=== PATIENT | female | born 1985 | race African-American/Black ===

== ENCOUNTER 2017-09-15 15:06 | Emergency (ER) | payer MEDICAID ==
[2017-09-15 16:31] VITALS: BP 106/73
[2017-09-15 16:43] LABS: ABS Basophils 0 10^3/ul (0-0.2); ABS Eosinophils 0.2 10^3/ul (0-0.6); ABS Lymphocytes 1.6 10^3/ul (1.0-4.8); ABS Monocytes 0.5 10^3/ul (0-0.8); ABS Neutrophils 5.1 10^3/ul (1.5-7.7); ABS Nucleated RBC 0 10^3/ul; Eosinophil % 2.1 % (0-6); Hematocrit 38 % (35-47); Hemoglobin 12.6 g/dl (12.0-16.0); Lymphocyte % 21.1 % (25-47); Mean Corpuscular HGB Conc 33 g/dl (31-36); Mean Corpuscular Hemoglobin 29 pg (27-31); Mean Corpuscular Volume 86 fL (80-97); Mean Platelet Volume 8.7 um3 (7.4-10.4); Nucleated Red Blood Cells % 0.2; Platelet Count 285 10^3/ul (150-450); Red Cell Distribution Width 14 % (10.5-15); White Blood Count 7.4 10^3/ul (3.5-10.8)
[2017-09-15] MEDS ORDERED: PROCHLORPERAZINE INJ 5 MG/ML 2 ML VIAL IV PRN (16:52)
[2017-09-15] MEDS ORDERED: Morphine VIAL* 4 MG/ML VIAL (1 ml vial) IV ONE (16:52)
[2017-09-15 16:54] LABS: EGFR Non-African American 77.5 (>60)
--- NOTE | 2017-09-15 17:01 | ED ---
Abdominal Pain/Female - HPI Summary HPI Summary: Patient here with abdominal pain since hysterectomy in February 2017. She reports this got worse yesterday in her right lower quadrant and describes it as a burning pain. She had a hysterectomy in 2017 for her fibroids that she reports rib "the size of footballs". The pain she's had since the surgery has been followed by her care providers who per patient did not feel there is anything significant causing this. She reports she is able to urinate without difficulty and denies frequency, hematuria, urgency, hesitation. Furthermore she denies any vaginal irritation or discharge. She does admit that the pain in her right lower quadrant is worse when she tries to bear down to move her bowels and is better when she allows her stool to pass naturally without straining. She denies melena and hematochezia. In fact she reports her stool is more of a light brown color, even orange at times. She is not sure if she still has her appendix, gallbladder, ovaries, etc. Denies history of gastrointestinal issues otherwise such as Crohn's or colitis. - History of Current Complaint Chief Complaint: Garry Stated Complaint: ABD PAIN Time Seen by Provider: 09/15/17 15:21 Hx Obtained From: Patient Pain Intensity: 10 Allergies/Adverse Reactions: Allergies Allergy/AdvReac Type Severity Reaction Status Date / Time NSAIDS (Non-Steroidal Allergy GI Upset Verified 09/15/17 15:30 Anti-Inflamma Home Medications: Home Medications Gabapentin CAP(*) [Neurontin 300 CAP(*)] 300 mg PO TID 09/15/17 [History Confirmed 09/15/17] LevoCETirizine TAB (NF) [Xyzal TAB (NF)] 5 mg PO DAILY 09/15/17 [History Confirmed 09/15/17] Omeprazole CAP* [Prilosec CAP* 20 MG] 20 mg PO DAILY 09/15/17 [History Confirmed 09/15/17] PMH/Surg Hx/FS Hx/Imm Hx Previously Healthy: Yes Endocrine/Hematology History: Reports: Hx Thyroid Disease - Hyperthyroid Denies: Hx Diabetes Cardiovascular History: Denies: Hx Hypertension, Hx Pacemaker/ICD GI History: Reports: Other GI Disorders - GASTRIC ULCER History: Denies: Hx Dialysis, Hx Renal Disease Sensory History: Denies: Hx Hearing Aid Psychiatric History: Reports: Hx of Violent Episodes Against Others, Hx Substance Abuse - ETOH abuse Denies: Hx Eating Disorder, Hx Panic Disorder - Surgical History Surgery Procedure, Year, and Place: SURGERY FOR FIBROIDS - Immunization History Date of Tetanus Vaccine: 2010 Date of Influenza Vaccine: None Infectious Disease History: No Infectious Disease History: Denies: Traveled Outside the [place] in Last 30 Days - Family History Known Family History: Positive: Diabetes, Other - neg blood clots - Social History Alcohol Use: Weekly Alcohol Amount: approx 2 beers when she can get it Hx Substance Use: Yes Substance Use Type: Reports: Marijuana Substance Use Comment - Amount & Last Used: occasionally Hx Tobacco Use: Yes Smoking Status (MU): Light Every Day Tobacco Smoker Review of Systems Constitutional: Negative Negative: Fever, Chills, Fatigue Negative: Chest Pain Negative: Shortness Of Breath Positive: Abdominal Pain. Negative: Vomiting, Diarrhea, Nausea Positive: see HPI Musculoskeletal: Negative Skin: Negative Neurological: Negative Positive: Anxious All Other Systems Reviewed And Are Negative: Yes Physical Exam Triage Information Reviewed: Yes Vital Signs On Initial Exam: Initial Vitals Temp Pulse Resp BP Pulse Ox 98.1 F 73 18 155/74 97 09/15/17 15:15 09/15/17 15:15 09/15/17 15:15 09/15/17 15:15 09/15/17 15:15 Vital Signs Reviewed: Yes Appearance: Positive: Well-Appearing, Pain Distress - plus anxiety, Obese Skin: Positive: Warm, Skin Color Reflects Adequate Perfusion, Dry Head/Face: Positive: Normal Head/Face Inspection Eyes: Positive: Normal, EOMI, Conjunctiva Clear - anicteric sclera ENT: Positive: Normal ENT inspection, Hearing grossly normal, Pharynx normal - mucosa moist Respiratory/Lung Sounds: Positive: Breath Sounds Present Cardiovascular: Positive: Normal, RRR Abdomen Description: Positive: Soft, McBurney's Point Tenderness - no rebounding ; possible Rovsing Pelvic Exam: Positive: External Exam Normal, Other - internal difficult 2ndry to body habitus - attempted speculum and bimanual w/o success - swabs collected. Negative: Active Bleeding Musculoskeletal: Positive: Normal, Strength/ROM Intact Neurological: Positive: Normal, Sensory/Motor Intact, Alert, Oriented to Person Place, Time, CN Intact II-III Psychiatric: Positive: Anxious Diagnostics - Vital Signs Vital Signs Temp Pulse Resp BP Pulse Ox 09/15/17 16:28 78 106/73 100 09/15/17 16:10 83 125/104 97 09/15/17 16:00 82 100 09/15/17 15:21 75 155/74 99 09/15/17 15:15 98.1 F 73 18 155/74 97 - Laboratory Lab Results: Lab Results 09/15/17 09/15/17 09/15/17 Range/Units 16:25 16:25 16:25 WBC 7.4 (3.5-10.8) 10^3/ul RBC 4.40 (4.0-5.4) 10^6/ul Hgb 12.6 (12.0-16.0) g/dl Hct 38 (35-47) % MCV 86 (80-97) fL MCH 29 (27-31) pg MCHC 33 (31-36) g/dl RDW 14 (10.5-15) % Plt Count 285 (150-450) 10^3/ul MPV 8.7 (7.4-10.4) um3 Neut % (Auto) 68.7 (38-83) % Lymph % (Auto) 21.1 L (25-47) % [place] % (Auto) 7.4 H (0-7) % Eos % (Auto) 2.1 (0-6) % Baso % (Auto) 0.7 (0-2) % Absolute Neuts (auto) 5.1 (1.5-7.7) 10^3/ul Absolute Lymphs (auto) 1.6 (1.0-4.8) 10^3/ul Absolute Monos (auto) 0.5 (0-0.8) 10^3/ul Absolute Eos (auto) 0.2 (0-0.6) 10^3/ul Absolute Basos (auto) 0 (0-0.2) 10^3/ul Absolute Nucleated RBC 0 10^3/ul Nucleated RBC % 0.2 Sodium 136 L (139-145) mmol/L Potassium 3.8 (3.5-5.0) mmol/L Chloride 103 (101-111) mmol/L Carbon Dioxide 25 (22-32) mmol/L Anion Gap 8 (2-11) mmol/L BUN 13 (6-24) mg/dL Creatinine 0.86 (0.51-0.95) mg/dL Est GFR ( Amer) 99.6 (>60) Est GFR (Non-Af Amer) 77.5 (>60) BUN/Creatinine Ratio 15.1 (8-20) Glucose 110 H (70-100) mg/dL Lactic Acid 1.0 (0.5-2.0) mmol/L Calcium 9.4 (8.6-10.3) mg/dL Magnesium 2.0 (1.9-2.7) mg/dL Total Bilirubin 0.20 (0.2-1.0) mg/dL AST 25 (13-39) U/L ALT 31 (7-52) U/L Alkaline Phosphatase 68 (34-104) U/L C-Reactive Protein 16.23 H (< 5.00) mg/L Total Protein 7.7 (6.4-8.9) g/dL Albumin 3.7 (3.2-5.2) g/dL Globulin 4.0 (2-4) g/dL Albumin/Globulin Ratio 0.9 L (1-3) Lipase 30 (11.0-82.0) U/L Result Diagrams: 09/15/17 16:25 09/15/17 16:25 Lab Statement: Any lab studies that have been ordered have been reviewed, and results considered in the medical decision making process. Abdominal Pain Fem Course/Dx - Course Course Of Treatment: Appendicitis vs. ovarian cyst vs ovarian torsion vs hernia vs complication of hysterectomy (surgical injury, adhesion, etc). Signed out to Veronica ZHANG pending CT and U/S. Labs and vitals are uremarkable for acute infection. - Diagnoses Provider Diagnoses: RLQ abdominal pain Discharge - Sign-Out/Discharge Documenting (check all that apply): Sign-Out Patient Signing out patient TO: Marva Castrejon - Discharge Plan Condition: Stable - Billing Disposition and Condition Condition: STABLE
[2017-09-15] MEDS ORDERED: Iohexol 300* (CONTRAST) 10 ML SDV IV ONE (17:02)
[2017-09-15] MEDS ORDERED: Diazepam SYRINGE* 5 MG/ML 2 ML SYRINGE (10 MG total) IV ONE (17:21)
[2017-09-15] MEDS ORDERED: LORazepam INJ* 2 MG/ML 1 ML VIAL IV PUSH ONE (17:45)
--- NOTE | 2017-09-15 19:31 | RAD ---
Indication: Right lower quadrant pain. Contrast: 150 mL of Omnipaque 300. CT of the abdomen and pelvis was performed after IV contrast administration. No oral contrast was administered. Comparison is made with previous exam dated February 23, 2015. Lung bases demonstrate no pleural fluid nodules or masses. Heart is of normal size without evidence of pericardial effusion. The liver is normal in size. No focal lesions or intrahepatic ductal dilatation is noted. The spleen is normal in size. The gallbladder demonstrates no calcified gallstones. No adrenal masses are noted. The kidneys demonstrate no hydronephrosis. Demonstrate symmetric nephrograms. Aorta and inferior vena cava are unremarkable. Dilated loops of bowel are noted. The colon is filled with stool. The appendix is visualized and appears normal. Evaluation of the pelvis demonstrates no retroperitoneal or pelvic lymphadenopathy. The colon is filled with stool. Urinary bladder is unremarkable. There is no dilated loops of bowel noted. Patient is status post hysterectomy. No free fluid is identified. IMPRESSION: Patient is status post hysterectomy. No adnexal masses are noted. The appendix appears normal.
--- NOTE | 2017-09-15 20:24 | RAD ---
Indication: Right lower quadrant pain. Real-time sonography of the pelvis was performed. The patient is status post hysterectomy. The right ovary measures 4.3 x 3.1 x 2.1 cm. Left ovary measures 2.4 x 4.3 x 3.6 cm. Doppler interrogation demonstrates flow in both ovaries. IMPRESSION: No evidence of torsion. Patient status post hysterectomy.
--- NOTE | 2017-09-15 20:38 | ED ---
Progress - Progress Note Progress Note: Patient signed out by Parisa pending ultrasound and CT. CT normal. Ultrasound normal. Discussed that did not have a reason for her pain. Does not appear to have any infection. Told to follow carpenter assembler. Tylenol for pain. Patient is requesting Colace for constipation. Patient understands and agrees with plan. - EKG/XRAY/CT CT: IMPRESSION: Patient is status post hysterectomy. No adnexal masses are note Course/Dx - Course Course Of Treatment: Appendicitis vs. ovarian cyst vs ovarian torsion vs hernia vs complication of hysterectomy (surgical injury, adhesion, etc). Signed out to Veronica ZHANG pending CT and U/S. Labs and vitals are uremarkable for acute infection. u/s normal flow ovaries - Diagnoses Provider Diagnoses: RLQ abdominal pain Discharge - Sign-Out/Discharge Documenting (check all that apply): Discharge/Admit/Transfer, Receiving Sign-Out Receiving patient FROM: Parisa Peterson - Discharge Plan Condition: Good Disposition: HOME Prescriptions: Docusate CAP* [Colace Cap*] 100 mg PO DAILY #15 cap Patient Education Materials: Abdominal Pain (ED) Referrals: Jo Whitaker MD [Primary Care Provider] - Additional Instructions: Follow up with carpenter assembler Take tyenlol every 6 hours Take colace once a day Return to ED if develop any new or worsening symptoms - Billing Disposition and Condition Condition: GOOD Disposition: HOME
[2017-09-15 21:34] LABS: Urine Appearance Clear; Urine Blood Negative (Negative); Urine Color Yellow; Urine Ketones Negative (Negative); Urine Protein Negative (Negative); Urine Specific Gravity > 1.060 (1.010-1.030); Urine Urobilinogen Negative (Negative)
== END 2017-09-15 21:01 | disposition home or self-care (01) ==
LOC: ED 15:06
DX: R10.31 Right lower quadrant pain (principal); F17.200 Nicotine dependence, unspecified, uncomplicated; Z90.710 Acquired absence of both cervix and uterus; Z88.6 Allergy status to analgesic agent
CPT/HCPCS: 36415; 74177; 76830; 80053; 81003; 83605; 83690; 83735; 85025; 86140; 87480; 87491; 87510; 87591; 87661; 96374; 96375; 99282; J0780; J2060; J2270; Q9967

== ENCOUNTER 2017-11-06 12:42 | Emergency (ER) | payer MEDICAID ==
[2017-11-06] MEDS ORDERED: Acetaminophen TAB* 325 MG PO ONE (12:49)
--- NOTE | 2017-11-06 13:12 | RAD ---
INDICATION: Right ankle injury none COMPARISON: None TECHNIQUE: AP, lateral, and oblique views were obtained. FINDINGS: There is no acute fracture or dislocation. There is mild diffuse soft tissue swelling. IMPRESSION: NO ACUTE FRACTURE
[2017-11-06 13:39] VITALS: BP 139/78
--- NOTE | 2017-11-06 14:13 | ED ---
Lower Extremity - HPI Summary HPI Summary: Patient is a 32-year-old female presenting to the ED 12 hours after she inverted her right ankle. Patient endorses swelling, but denies any ecchymosis or temperature changes. Denies any numbness or tingling. She states she is unable to ambulate on the extremity due to pain. Allergy to NSAIDs. - History of Current Complaint Chief Complaint: EDExtremityLower Stated Complaint: RT ANKLE INJURY Time Seen by Provider: 11/06/17 12:45 Hx Obtained From: Patient Mechanism Of Injury: Twisted Onset of Pain: Hours Onset/Duration: Hours Severity Initially: Moderate Severity Currently: Moderate Pain Intensity: 0 Pain Scale Used: 0-10 Numeric Timing: Constant Location: Is Discrete @ - right ankle pain Character Of Pain: Aching Associated Signs And Symptoms: Positive: Swelling. Negative: Redness, Bruising , Fever, Weakness Aggravating Factor(s): Standing, Ambulation Alleviating Factor(s): Rest Able to Bear Weight: No - Risk Factors Gout Risk Factors: Negative DVT Risk Factors: Negative Septic Arthritis Risk Factor: Negative - Allergies/Home Medications Allergies/Adverse Reactions: Allergies Allergy/AdvReac Type Severity Reaction Status Date / Time NSAIDS (Non-Steroidal Allergy GI Upset Verified 11/06/17 12:52 Anti-Inflamma PMH/Surg Hx/FS Hx/Imm Hx Previously Healthy: Yes Endocrine/Hematology History: Reports: Hx Thyroid Disease - Hyperthyroid Denies: Hx Diabetes Cardiovascular History: Denies: Hx Hypertension, Hx Pacemaker/ICD GI History: Reports: Other GI Disorders - GASTRIC ULCER History: Denies: Hx Dialysis, Hx Renal Disease Sensory History: Denies: Hx Hearing Aid Psychiatric History: Reports: Hx of Violent Episodes Against Others, Hx Substance Abuse - ETOH abuse Denies: Hx Eating Disorder, Hx Panic Disorder - Surgical History Surgery Procedure, Year, and Place: SURGERY FOR FIBROIDS - Immunization History Date of Tetanus Vaccine: 2010 Date of Influenza Vaccine: None Hx Pertussis Vaccination: No Immunizations Up to Date: Unable to Obtain/Confirm Infectious Disease History: No Infectious Disease History: Denies: Traveled Outside the [place] in Last 30 Days - Family History Known Family History: Positive: None, Diabetes, Other - neg blood clots - Social History Occupation: Unemployed Lives: Alone Alcohol Use: Weekly Alcohol Amount: approx 2 beers when she can get it Hx Substance Use: Yes Substance Use Type: Reports: Marijuana Substance Use Comment - Amount & Last Used: occasionally Hx Tobacco Use: Yes Smoking Status (MU): Light Every Day Tobacco Smoker Review of Systems Constitutional: Negative Negative: Fever, Chills, Skin Diaphoresis Negative: Palpitations, Chest Pain Negative: Shortness Of Breath, Cough Genitourinary: Negative Positive: no symptoms reported, see HPI Positive: Arthralgia - right ankle pain Skin: Negative Neurological: Negative All Other Systems Reviewed And Are Negative: Yes Physical Exam Triage Information Reviewed: Yes Vital Signs On Initial Exam: Initial Vitals Temp Pulse Resp BP Pulse Ox 97.8 F 80 16 130/75 99 11/06/17 12:49 11/06/17 12:49 11/06/17 12:49 11/06/17 12:49 11/06/17 12:49 Vital Signs Reviewed: Yes Appearance: Positive: Well-Appearing, Well-Nourished, Obese Skin: Positive: Warm, Skin Color Reflects Adequate Perfusion Head/Face: Positive: Normal Head/Face Inspection Neck: Positive: Supple, No Lymphadenopathy Respiratory/Lung Sounds: Positive: Clear to Auscultation Cardiovascular: Positive: RRR Musculoskeletal: Positive: Pain @ - right ankle pain Neurological: Positive: Speech Normal Psychiatric: Positive: Normal, Affect/Mood Appropriate Diagnostics - Vital Signs Vital Signs Temp Pulse Resp BP Pulse Ox 11/06/17 13:38 98.2 F 83 18 139/78 99 11/06/17 12:49 97.8 F 80 16 130/75 99 - Laboratory Lab Statement: Any lab studies that have been ordered have been reviewed, and results considered in the medical decision making process. Lower Extremity Course/Dx - Course Course Of Treatment: Xray of the R ankle negative for any fracture. Denies numbness or tingling. There is swelling noted to the lateral side. Decreased strength. Gel splint, Hermes wrap and crutches given. - Diagnoses Differential Diagnosis/HQI/PQRI: Positive: Sprain, Strain Provider Diagnoses: Ankle sprain Discharge - Sign-Out/Discharge Documenting (check all that apply): Discharge/Admit/Transfer - Discharge Plan Condition: Stable Disposition: HOME Patient Education Materials: Ankle Sprain (ED) Referrals: Jo Whitaker MD [Primary Care Provider] - Additional Instructions: Keep gel splint applied for comfort Keep hermes wrapped daily until you begin to feel improved Crutches as needed tylenol 650mg three times daily Elevate ice - Billing Disposition and Condition Condition: STABLE Disposition: Home
== END 2017-11-06 13:38 | disposition home or self-care (01) ==
LOC: ED 12:42
DX: S93.401A Sprain of unspecified ligament of right ankle, initial encounter (principal); M25.471 Effusion, right ankle; F17.210 Nicotine dependence, cigarettes, uncomplicated; X50.9XXA Other and unspecified overexertion or strenuous movements or postures, initial encounter; Y92.9 Unspecified place or not applicable; Z88.6 Allergy status to analgesic agent
CPT/HCPCS: 99283; A9270-GY

== ENCOUNTER 2018-06-04 12:15 | Emergency (ER) | payer MEDICARE, MEDICAID ==
--- NOTE | 2018-06-04 12:40 | ED ---
Upper Extremity Pain - HPI Summary HPI Summary: This patient is a 33 year old F presenting to [facility] with a chief complaint of bilateral UE pain and numbness that got worse this morning. She states yesterday she was at work when she began having back pain and numbness, she thought she over did it and went to bed. Then the UE sx began this morning when she woke up. The patient rates the pain 10/10 in severity and describes the sensation as feeling heavy. Patient reports RLE edema that also began this morning. Patient denies cough, NVD, MARQUEZ, blurred vision, ABD pain, CP, SOB, fever , and chills. She has no history of blood clots. She has had a hysterectomy and she is not on any hormones. - History of Current Complaint Chief Complaint: EDExtremityUpper Stated Complaint: NUMBNESS IN HANDS Time Seen by Provider: 06/04/18 12:30 Hx Obtained From: Patient Mechanism Of Injury: Unknown Onset/Duration: Started Hours Ago, Still Present Timing: Constant Severity Initially: Mild Severity Currently: Moderate Pain Location: Arm Associated Signs & Symptoms: Positive: Swelling, Weakness, Numbness/Tingling - Allergies/Home Medications Allergies/Adverse Reactions: Allergies Allergy/AdvReac Type Severity Reaction Status Date / Time NSAIDS (Non-Steroidal Allergy GI Upset Verified 06/04/18 12:19 Anti-Inflamma Home Medications: Home Medications LoraTADine TAB(NF) [Claritin 10 MG TAB(NF)] 10 mg PO DAILY 06/04/18 [History Confirmed 06/04/18] Ranitidine TAB (NF) [Zantac TAB (NF)] 150 mg PO DAILY 06/04/18 [History Confirmed 06/04/18] PMH/Surg Hx/FS Hx/Imm Hx Endocrine/Hematology History: Reports: Hx Thyroid Disease - Hyperthyroid Denies: Hx Diabetes Cardiovascular History: Denies: Hx Angioplasty, Hx Hypertension, Hx Pacemaker/ICD GI History: Reports: Other GI Disorders - GASTRIC ULCER History: Denies: Hx Dialysis, Hx Renal Disease Sensory History: Reports: Hx Contacts or Glasses Opthamlomology History: Reports: Hx Contacts or Glasses Psychiatric History: Reports: Hx of Violent Episodes Against Others, Hx Substance Abuse - ETOH abuse Denies: Hx Eating Disorder, Hx Panic Disorder - Surgical History Surgery Procedure, Year, and Place: SURGERY FOR FIBROIDS - Immunization History Date of Tetanus Vaccine: 2010 Date of Influenza Vaccine: None Infectious Disease History: No Infectious Disease History: Denies: Traveled Outside the [place] in Last 30 Days - Family History Known Family History: Positive: Hypertension, Diabetes, Other - neg blood clots - Social History Alcohol Use: Weekly Alcohol Amount: approx 2 beers when she can get it Hx Substance Use: Yes Substance Use Type: Reports: Marijuana Substance Use Comment - Amount & Last Used: occasionally Hx Tobacco Use: Yes Smoking Status (MU): Light Every Day Tobacco Smoker Review of Systems Negative: Fever, Chills Negative: Blurred Vision Negative: Chest Pain Negative: Shortness Of Breath Negative: Abdominal Pain, Vomiting, Diarrhea, Nausea Musculoskeletal: Other - pain at bilateal UE Positive: Edema, Other - back pain Positive: Numbness. Negative: Headache All Other Systems Reviewed And Are Negative: Yes Physical Exam - Summary Physical Exam Summary: GENERAL: Patient is a well-developed and nourished F who is lying comfortable in the stretcher. Patient is not in any acute respiratory distress. HEAD AND FACE: Normocephalic EYES: PERRLA, EOMI x 2. EARS: Hearing grossly intact. MOUTH: Oropharynx within normal limits. NECK: Supple, trachea is midline, no adenopathy, no JVD, no carotid bruit. CHEST: Symmetric, no tenderness at palpation LUNGS: Clear to auscultation bilaterally. No wheezing or crackles. CVS: Regular rate and rhythm, S1 and S2 present, no murmurs or gallops appreciated. ABDOMEN: Soft, non-tender. Bowel sounds are normal. No abdominal abnormal pulsations. EXTREMITIES: the RLE is swollen without erythema or warmth NEURO: Alert and oriented x 3. No acute neurological deficits. Speech is normal and follows commands. Sensation in bilateral hands intact decrease ROM 2/2 pain , no obvious deformity, swelling SKIN: Dry and warm Triage Information Reviewed: Yes Vital Signs On Initial Exam: Initial Vitals Temp Pulse Resp BP Pulse Ox 97.5 F 68 18 132/92 100 06/04/18 12:19 06/04/18 12:19 06/04/18 12:19 06/04/18 12:19 06/04/18 12:19 Vital Signs Reviewed: Yes Diagnostics - Vital Signs Vital Signs Temp Pulse Resp BP Pulse Ox 06/04/18 12: 97.5 F 68 18 132/92 100 - Laboratory Result Diagrams: 06/04/18 12:54 06/04/18 12:54 Lab Statement: Any lab studies that have been ordered have been reviewed, and results considered in the medical decision making process. - Ultrasound No standard instances Ultrasound Interpretation Completed By: Radiologist Summary of Ultrasound Findings: US RLE reveals, per radiologist, NO RIGHT LOWER EXTREMITY DEEP VEIN THROMBOSIS. ED physician has reviewed this radiology report Re-Evaluation - Re-Evaluation First Eval Re-Evaluation Time: 15:18 Change: Improved Comment: The patient states she is feeling better and is requesting to go home. Course/Dx - Course Assessment/Plan: This patient is a 33 year old F presenting to [facility] with a chief complaint of bilateral UE pain and numbness that got worse this morning. US RLE reveals, per radiologist, NO RIGHT LOWER EXTREMITY DEEP VEIN THROMBOSIS. The patient is requesting to go home. Blood work obtained. In the ED course the patient was given ultram and her pain improved. Patient will be discharged and follow up from PCP. The patient is agreeable with this plan. - Diagnoses Provider Diagnoses: Hand paresthesia Discharge - Sign-Out/Discharge Documenting (check all that apply): Patient Departure Patient Received Moderate/Deep Sedation with Procedure: No - Discharge Plan Condition: Stable Disposition: HOME Patient Education Materials: Paresthesia (ED) Forms: *Work Release Referrals: Jo Whitaker MD [Primary Care Provider] - Additional Instructions: Follow up with your primary care physician in 1-3 days. RETURN TO THE EMERGENCY DEPARTMENT FOR CHANGING OR WORSENING SYMPTOMS. - Billing Disposition and Condition Condition: STABLE Disposition: Home - Attestation Statements Document Initiated by Kerry: Yes Documenting Scribe: Toni Sykes Provider For Whom Kerry is Documenting (Include Credential): Oscar Olmos MD Scribe Attestation: Toni Finney scribed for Oscar Olmos MD on 06/05/18 at 1051. Scribe Documentation Reviewed: Yes Provider Attestation: The documentation as recorded by the Toni alcaraz accurately reflects the service I personally performed and the decisions made by me, Oscar Olmos MD Status of Scribe Document: Viewed
[2018-06-04 13:56] LABS: ABS Basophils 0.1 10^3/ul (0-0.2); ABS Eosinophils 0.2 10^3/ul (0-0.6); ABS Lymphocytes 1.8 10^3/ul (1.0-4.8); ABS Monocytes 0.5 10^3/ul (0-0.8); ABS Neutrophils 4.8 10^3/ul (1.5-7.7); ABS Nucleated RBC 0 10^3/ul; Eosinophil % 2.6 %; Hematocrit 38 % (35-47); Hemoglobin 12.2 g/dl (12.0-16.0); Mean Corpuscular HGB Conc 32 g/dl (31-36); Mean Corpuscular Hemoglobin 28 pg (27-31); Mean Corpuscular Volume 88 fL (80-97); Mean Platelet Volume 8.8 fL (7.4-10.4); Nucleated Red Blood Cells % 0.1; Platelet Count 276 10^3/ul (150-450); Red Blood Count 4.33 10^6/ul (4.00-5.40); Red Cell Distribution Width 14 % (10.5-15); White Blood Count 7.3 10^3/ul (3.5-10.8)
[2018-06-04 14:11] LABS: INR 0.93 (0.77-1.02)
[2018-06-04 14:18] LABS: HCG Pregnancy < 0.60 mIU/mL
[2018-06-04 14:20] LABS: ALT 37 U/L (7-52); AST 28 U/L (13-39); Albumin/Globulin Ratio 1.3 (1-3); Alkaline Phosphatase 67 U/L (34-104); Anion Gap 7 mmol/L (2-11); BUN/Creatinine Ratio 18.1 (8-20); Blood Urea Nitrogen 13 mg/dL (6-24); CO2 Carbon Dioxide 23 mmol/L (22-32); Calcium 9.3 mg/dL (8.6-10.3); Chloride 108 mmol/L (101-111); EGFR African American 114.3 (>60); EGFR Non-African American 94.5 (>60); Globulin 3.2 g/dL (2-4); Glucose 94 mg/dL (70-100); Magnesium 1.9 mg/dL (1.9-2.7); Sodium 138 mmol/L (135-145); Total Protein 7.2 g/dL (6.4-8.9)
[2018-06-04 14:44] LABS: TSH (Thyroid Stimulating Horm) 1.44 mcIU/mL (0.34-5.60)
[2018-06-04] MEDS ORDERED: traMADol TAB* 50 MG PO ONE (14:48)
[2018-06-04 15:27] VITALS: BP 128/82
== END 2018-06-04 15:26 | disposition home or self-care (01) ==
LOC: ED 12:15
DX: R20.2 Paresthesia of skin (principal); M54.9 Dorsalgia, unspecified; R60.9 Edema, unspecified
CPT/HCPCS: 36415; 80053; 83605; 83735; 83880; 84100; 84443; 84702; 85025; 85610; 85730; 99283; A9270-GY

== ENCOUNTER 2018-06-20 12:20 | Emergency (ER) | payer MEDICAID ==
--- NOTE | 2018-06-20 15:02 | ED ---
Upper Extremity Pain - HPI Summary HPI Summary: Pt is a 33 y/o female who presents to the ED c/o RUE pain. She has had numbness , paresthesia, and pain of her RUE for the past 2-3 days. The pain begins in her right elbow and extends up to her entire right hand. Pt rates the pain as a 10/10 in severity, and is worse in the morning and while shes sleeping. Her PCP believes her pain is carpal tunnel so she was given a brace, but the brace makes the pain worse. 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 She also notes that her left toe was numb this morning. Pts mother has carpal tunnel. - History of Current Complaint Chief Complaint: EDExtremityUpper Stated Complaint: ARM INJURY Time Seen by Provider: 06/20/18 14:57 Hx Obtained From: Patient Mechanism Of Injury: Other - No injury Onset/Duration: Started Days Ago - 2-3, Still Present Timing: Constant Severity Currently: Severe - 10/10 Pain Location: Arm - right forearm, Elbow - right, Hand - right Aggravating Factor(s): Other - wearing brace Alleviating Factor(s): Nothing Associated Signs & Symptoms: Positive: Numbness/Tingling Related History: Dominant Hand Right - Allergies/Home Medications Allergies/Adverse Reactions: Allergies Allergy/AdvReac Type Severity Reaction Status Date / Time NSAIDS (Non-Steroidal Allergy GI Upset Verified 06/20/18 12:41 Anti-Inflamma PMH/Surg Hx/FS Hx/Imm Hx Endocrine/Hematology History: Reports: Hx Thyroid Disease - Hyperthyroid Denies: Hx Diabetes Cardiovascular History: Denies: Hx Angioplasty, Hx Hypertension, Hx Pacemaker/ICD GI History: Reports: Other GI Disorders - GASTRIC ULCER History: Denies: Hx Dialysis, Hx Renal Disease Sensory History: Reports: Hx Contacts or Glasses Opthamlomology History: Reports: Hx Contacts or Glasses Psychiatric History: Reports: Hx of Violent Episodes Against Others, Hx Substance Abuse - ETOH abuse Denies: Hx Eating Disorder, Hx Panic Disorder - Surgical History Surgery Procedure, Year, and Place: SURGERY FOR FIBROIDS - Immunization History Date of Tetanus Vaccine: 2010 Date of Influenza Vaccine: None Infectious Disease History: No Infectious Disease History: Denies: Traveled Outside the [place] in Last 30 Days - Family History Known Family History: Positive: Hypertension, Diabetes, Other - carpal tunnel Negative: Blood Disorder - clots - Social History Alcohol Use: Weekly Alcohol Amount: approx 2 beers when she can get it Hx Substance Use: Yes Substance Use Type: Reports: Marijuana Substance Use Comment - Amount & Last Used: occasionally Hx Tobacco Use: Yes Smoking Status (MU): Light Every Day Tobacco Smoker Review of Systems Positive: Myalgia - RUE Positive: Paresthesia - RUE, Numbness - RUE All Other Systems Reviewed And Are Negative: Yes Physical Exam - Summary Physical Exam Summary: Appearance: Well appearing, no pain distress Skin: warm, dry, reflects adequate perfusion Head/face: normal Eyes: EOMI, ARLETTE ENT: mucous membranes moist Neck: supple, non-tender Respiratory: CTA, breath sounds present Cardiovascular: RRR, pulses symmetrical Abdomen: non-tender, soft Bowel Sounds: present Musculoskeletal: normal, strength/ROM intact, motor function of medial, ulnar, and extensor nerves intact Neuro: normal, sensory motor intact, A&Ox3 Triage Information Reviewed: Yes Vital Signs On Initial Exam: Initial Vitals Temp Pulse Resp BP Pulse Ox 97.7 F 80 19 143/64 99 06/20/18 12:37 06/20/18 12:37 06/20/18 12:37 06/20/18 12:37 06/20/18 12:37 Vital Signs Reviewed: Yes Diagnostics - Vital Signs Vital Signs Temp Pulse Resp BP Pulse Ox 06/20/18 12:37 97.7 F 80 19 143/64 99 - Laboratory Lab Statement: Any lab studies that have been ordered have been reviewed, and results considered in the medical decision making process. Course/Dx - Course Course Of Treatment: Nurse's notes reviewed. Patient with a working diagnosis of carpal tunnel syndrome was not wearing her brace presents with pain in all III nerve distributions in her dominant right hand and wrist. She has no thenar wasting. She was treated for discomfort and suggested to get outpatient EMG. She was referred to hand surgery. - Diagnoses Differential Diagnosis/HQI/PQRI: Positive: Other - Radicular pain, carpal tunnel syndrome Provider Diagnoses: Carpal tunnel syndrome, Right hand paresthesia Discharge - Sign-Out/Discharge Documenting (check all that apply): Patient Departure - Discharge Patient Received Moderate/Deep Sedation with Procedure: No - Discharge Plan Condition: Improved Disposition: HOME Prescriptions: Meloxicam [Mobic] 7.5 mg PO DAILY #30 tablet Patient Education Materials: Paresthesia (ED), Carpal Tunnel Surgery (DC) Forms: *Work Release Referrals: Phil Garza MD [Medical Doctor] - Holger Johnson DO [Primary Care Provider] - Additional Instructions: You will need to have an EMG scheduled by your doctor to be done on an outpatient basis. Make sure you wear your splint at night as this will help over the long-term. Ice, Tylenol for breakthrough pain. After the EMG is performed if it is abnormal you can follow-up with the orthopedic hand surgeon Dr. Garza. Return if worse, new symptoms or other concerns. - Billing Disposition and Condition Condition: IMPROVED Disposition: Home - Attestation Statements Document Initiated by Kerry: Yes Documenting Scribe: Leyla Mahajan Provider For Whom Kerry is Documenting (Include Credential): Matthias Almonte MD Scribe Attestation: Leyla Finney, scribed for Matthias Almonte MD on 06/20/18 at 1723. Scribe Documentation Reviewed: Yes Provider Attestation: The documentation as recorded by the Leyla alcaraz accurately reflects the service I personally performed and the decisions made by , Matthias Almonte MD Status of Scribe Document: Viewed
[2018-06-20 15:17] VITALS: BP 139/78
== END 2018-06-20 15:15 | disposition home or self-care (01) ==
LOC: ED 12:20
DX: G56.01 Carpal tunnel syndrome, right upper limb (principal); R20.2 Paresthesia of skin
CPT/HCPCS: 99282

== ENCOUNTER 2019-01-04 08:28 | Emergency (ER) | payer MEDICAID, MEDICARE ==
[2019-01-04] MEDS ORDERED: predniSONE TAB* 20 MG PO ONE (08:59)
[2019-01-04] MEDS ORDERED: Lidocaine PATCH 5%* 1 PATCH TRANSDERM SCH (09:00)
--- NOTE | 2019-01-04 09:14 | ED ---
Back Pain - HPI Summary HPI Summary: This patient is a 33-year-old morbidly obese female who presents to the ED with mid back pain and weakness in her legs. She states she's been battling this for years and she has been taking gabapentin in which she states only "dulls the tingling sensation" from her bilateral legs. She states she feels the gabapentin is not working and needs something stronger. States "I dont know why i have to push myself up when going from sitting to standing." She believes she may have a nerve or muscular condition. Endorses multiple previous MRI's and CT's. No nerve conduction studies. She is a pt of Dr. Sherman at [facility]. - History of Current Complaint Chief Complaint: EDBackInjuryPain Stated Complaint: NON-TRAUMATIC BACK PAIN PER EMS Time Seen by Provider: 01/04/19 08:29 Hx Obtained From: Patient Onset/Duration: Sudden Onset Onset/Duration: Started Hours Ago Timing: Constant Back Pain Location: Is Discrete @ - mid back pain non radiating Severity Initially: Moderate Severity Currently: Moderate Pain Intensity: 10 Pain Scale Used: 0-10 Numeric Character: Aching Aggravating Symptom(s): Movement, Lifting, Bending Alleviating Symptom(s): Rest, Position Associated Signs And Symptoms: Positive: Negative, Weakness, Numbness. Negative : Swelling, Redness, Bruising, Fever, Abdominal Pain, Flank Pain, Bladder Incontinence, Bowel Incontinence, Weight Loss, Pain with Weight Bearing - Risk Factors AAA Risk Factors: Negative TAD Risk Factors: Negative Cauda Equina Risk Factors: Negative Epidural Abscess Risk Factors: Negative - Allergies/Home Medications Allergies/Adverse Reactions: Allergies Allergy/AdvReac Type Severity Reaction Status Date / Time NSAIDS (Non-Steroidal Allergy GI Upset Verified 01/04/19 08:38 Anti-Inflamma Home Medications: Home Medications Gabapentin 300 mg PO TID 01/04/19 [History Confirmed 01/04/19] PMH/Surg Hx/FS Hx/Imm Hx Previously Healthy: Yes Endocrine/Hematology History: Reports: Hx Thyroid Disease - Hyperthyroid Denies: Hx Diabetes Cardiovascular History: Denies: Hx Angioplasty, Hx Hypertension, Hx Pacemaker/ICD GI History: Reports: Other GI Disorders - GASTRIC ULCER History: Denies: Hx Dialysis, Hx Renal Disease Sensory History: Reports: Hx Contacts or Glasses Opthamlomology History: Reports: Hx Contacts or Glasses Psychiatric History: Reports: Hx of Violent Episodes Against Others, Hx Substance Abuse - ETOH abuse Denies: Hx Eating Disorder, Hx Panic Disorder - Surgical History Surgery Procedure, Year, and Place: SURGERY FOR FIBROIDS - Immunization History Date of Tetanus Vaccine: 2010 Date of Influenza Vaccine: None Hx Pertussis Vaccination: No Immunizations Up to Date: Yes Infectious Disease History: No Infectious Disease History: Denies: Traveled Outside the [place] in Last 30 Days - Family History Known Family History: Positive: Hypertension, Diabetes, Other - carpal tunnel Negative: Blood Disorder - clots - Social History Occupation: Employed Part-time Lives: Alone Alcohol Use: Occasionally Alcohol Amount: approx 2 beers when she can get it Hx Substance Use: Yes Substance Use Type: Reports: Marijuana Substance Use Comment - Amount & Last Used: occasionally Hx Tobacco Use: Yes Smoking Status (MU): Light Every Day Tobacco Smoker Review of Systems Constitutional: Negative Negative: Fever, Chills, Fatigue, Skin Diaphoresis Negative: Palpitations, Chest Pain Negative: Shortness Of Breath, Cough Genitourinary: Negative Positive: no symptoms reported, see HPI Positive: Arthralgia Skin: Negative Neurological: Other Positive: Paresthesia, Numbness Psychological: Normal All Other Systems Reviewed And Are Negative: Yes Physical Exam Triage Information Reviewed: Yes Vital Signs On Initial Exam: Initial Vitals Temp Pulse Resp BP Pulse Ox 96.7 F 68 16 130/73 99 01/04/19 08:35 01/04/19 08:35 01/04/19 08:35 01/04/19 08:35 01/04/19 08:35 Vital Signs Reviewed: Yes Appearance: Positive: Well-Appearing, Well-Nourished Skin: Positive: Warm, Skin Color Reflects Adequate Perfusion Head/Face: Positive: Normal Head/Face Inspection Eyes: Positive: EOMI, ARLETTE, Conjunctiva Clear Neck: Positive: Supple, No Lymphadenopathy Respiratory/Lung Sounds: Positive: Clear to Auscultation, Breath Sounds Present Cardiovascular: Positive: RRR, Pulses are Symmetrical in both Upper and Lower Extremities Musculoskeletal: Positive: Normal, Strength/ROM Intact Neurological: Positive: Sensory/Motor Intact, Alert, Oriented to Person Place, Time, Speech Normal Psychiatric: Positive: Normal, Affect/Mood Appropriate AVPU Assessment: Alert Diagnostics - Vital Signs Vital Signs Temp Pulse Resp BP Pulse Ox 01/04/19 08:35 96.7 F 68 16 130/73 99 - Laboratory Lab Statement: Any lab studies that have been ordered have been reviewed, and results considered in the medical decision making process. Back Pain Course/Dx - Course Course Of Treatment: The patient arrives by ambulance. Patient states she has had mid back pain which is been intermittent for several years. This also is causing some tingling sensation and weakness in her bilateral lower extremity' s. She denies any bladder or bowel dysfunction. She denies any perinneal pain or tingling or inner thigh involvment. She states she continues to be able to ambulate and stand, but upon getting up, this requires her to lift herself with her arms. she does endorse weight gain. Provider did discuss with her at length the need for weight loss. Discussed there is no medication which will help the source of her chronic back pain or weakness. I hav agreed to give her lidocaine patch as well as a 5 day prednisone prescription to try to ease her symptoms. On physical examination, patient was able to ambulate for me, flex and extend at the hips as well as rotate at the hips. She does not have any weakness noted on exam. No decreased sensation throughout. Pt will be dc'd wendy with rx and encouragedment of weight loss and to consult with Dr. Wooten regarding bariatric surgery if she so chooses. - Diagnoses Differential Diagnosis/HQI/PQRI: Positive: Compressive Cord Syndrome, Herniated Disc, Strain, Sprain Provider Diagnoses: Back pain, Numbness and tingling of both lower extremities Discharge ED - Sign-Out/Discharge Documenting (check all that apply): Patient Departure Patient Received Moderate/Deep Sedation with Procedure: No - Discharge Plan Condition: Stable Disposition: HOME Prescriptions: predniSONE TAB* [Deltasone TAB*] 50 mg PO DAILY #5 tab MDD 1 Patient Education Materials: Peripheral Neuropathy (ED), Back Pain (ED) Referrals: mOar Ross MD [Medical Doctor] - Holger Johnson DO [Primary Care Provider] - Additional Instructions: Please follow-up with your PCP regarding further imaging at their discretion and or medication changes As discussed, continue to try to lose weight and you may find a lot of benefit from this Prednisone once daily x 5 days starting tomorrow for symptoms of pinched nerve/ neuropathy Please follow up with Dr. Wooten if you would ever want to consider bariatric surgery - Billing Disposition and Condition Condition: STABLE Disposition: Home
--- OUTSIDE RECORDS SUMMARY | 2019-01-04 09:30 | XMS REPORT | Summary of Care ---
:1985 Author Organization [facility] Address [address] [facility] [place] [address] Care Team Providers Name Role Phone Holger Johnson DO Primary Care Provider Reason for Referral Bariatrics (Routine) Status Reason Specialty Diagnoses / Referred By Referred To Procedures Contact Contact Authorized Medical Bariatrics Diagnoses Morbidly obese (HCC) Kory Ramos NP (Nonsurgical) [address] [facility] [place] [id number] Reason for Visit Reason Comments GI Problem New pt. referred by Dr. Johnson for R-sided abdominal pain & constipation. Encounter Details Date Type Department Care Team Description 01/02/2019 Office Visit LEXX Marie (nonalcoholic fatty liver) (Primary Dx); Gastroenterology/Hepa Bhavya Barbosa NP Morbidly obese (HCC) tology [address] [facility] [place] [address] [place] [address] Allergies Active Allergy Reactions Severity Noted Date Comments Nsaids GI Reaction 01/15/2018 documented as of this encounter (statuses as of 01/02/2019) Medications Medication Sig Dispensed Refills Start Date End Date Status mometasone (NASONEX) 50 [place] 1 [place] in 1 Bottle 0 12/09/2018 Active MCG/ACT Nasal nose EVERY TWELVE SuspensionIndications: HOURS. 2 sprays ETD (Eustachian tube in each nostril dysfunction), right once daily pantoprazole (PROTONIX) Take 1 Tab by 90 Tab 0 12/09/2018 Active 40 MG Oral Tab mouth BEFORE ECIndications: BREAKFAST. Abdominal pain, unspecified abdominal location gabapentin (NEURONTIN) Take 1 Cap by 90 Cap 2 12/21/2018 Active 300 MG Oral Cap mouth THREE TIMES DAILY. documented as of this encounter (statuses as of 01/02/2019) Active Problems Problem Noted Date Morbidly obese 01/02/2019 NAFL (nonalcoholic fatty liver) 01/15/2018 Class 3 obesity with body mass index (BMI) of 50.0 to 59.9 in adult 09/12/2017 Family history of alcoholism 09/12/2017 Alcohol abuse 09/12/2017 documented as of this encounter (statuses as of 01/02/2019) Social History Tobacco Use Types Packs/Day Years Used Date Light Tobacco Smoker 0.2 Smokeless Tobacco: Never Used Alcohol Use Drinks/Week oz/Week Comments Yes occasional Sex Assigned at Date Recorded Not on file Job Start Date Occupation Industry Not on file Not on file Not on file Travel History Travel Start Travel End No recent travel history available. documented as of this encounter Last Filed Vital Signs Vital Sign Reading Time Taken Comments Blood Pressure 104/72 01/02/2019 8:24 AM EDT Pulse 78 01/02/2019 8:24 AM EDT Temperature 35.8 01/02/2019 8:24 AM EDT C (96.5 F) Respiratory Rate - - Oxygen Saturation - - Inhaled Oxygen Concentration - - Weight 161.5 kg (356 lb) 01/02/2019 8:24 AM EDT Height 165.1 cm (5' 5") 01/02/2019 8:24 AM EDT Body Mass Index 59.24 01/02/2019 8:24 AM EDT documented in this encounter Patient Instructions Patient InstructionsBhavya Ramos NP - 01/02/2019 9:00 AM EDT1. Referral placed to [facility] 2. Keep up the hard work, daily activity and exercise, monitoring intake, eating leaner foods and increasing fruits and vegetable intake 3. Follow up after the above Thank you for choosing the [facility] for your needs today! -Bhavya Ramos N.P. , Please call if you need to cancel or change your appt. time. Thank you for choosing [facility] for your health care needs, and for consulting with [facility] today. You may receive a survey following this visit, or after an upcoming hospital stay. As easy as it is to feel overloaded with surveys, we are required to send them out randomly and they do provide important feedback so that we may serve your needs in the best way. Please do take the few minutes required to complete the survey if you receive one. We get them too, after seeing the doctor, and they only take a few minutes to complete. documented in this encounter Progress Notes Bhavya Ramos NP - 01/02/2019 9:00 AM EDT PATIENT: Zuleika Choudhury : 1985 DATE OF SERVICE: 01/02/2019 REFERRING PRACTITIONER: Holger Johnson PRIMARY CARE PROVIDER: Holger Johnson CHIEF COMPLAINT: Chief Complaint Patient presents with GI Problem New pt. referred by Dr. Johnson for R-sided abdominal pain & constipation. Subjective HISTORY OF PRESENT ILLNESS: Zuleika Choudhury is a 33-y.o. female who presents for a new visit. Previously followed for fatty liver disease. Previously followed by [facility] , was not considered for surgical weight loss due to her smoking history. 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 In the past several weeks she reports pain throughout the abdomen, with worsening upper back and right flank pain recently. Symptoms have been intermittent. Aggravating cause(s): eating and stress Alleviated by: spontaneous resolution over time Associated signs and symptoms: none Patient denies belching, chills, constipation, diarrhea, dysuria, fever, flatus , general epigastric discomfort, headache, hematochezia, hematuria, melena, myalgias, nausea, pneumaturia, sweats, vomiting, symptoms of obstruction and symptoms of anemia. Previous visits for these symptoms: yes, last seen by the patient's primary care provider. Evaluation to date: US abd 12/13/18 positive for fatty infiltration and hepatomegaly. No acute processes identified. Past Medical History: Diagnosis Date Acid reflux Past Surgical History: Procedure Laterality Date GA TOTAL ABDOM HYSTERECTOMY Family History Problem Relation Age of Onset No Known Problems Mother No Known Problems Father No Known Problems Sister Current Outpatient Medications Medication Sig gabapentin (NEURONTIN) 300 MG Oral Cap Take 1 Cap by mouth THREE TIMES DAILY. mometasone (NASONEX) 50 MCG/ACT Nasal Suspension [place] 1 [place] in nose EVERY TWELVE HOURS. 2 sprays in each nostril once daily pantoprazole (PROTONIX) 40 MG Oral Tab EC Take 1 Tab by mouth BEFORE BREAKFAST. No current facility-administered medications for this visit. Allergies Allergen Reactions Nsaids GI Reaction Social History Socioeconomic History Marital status: Single Spouse name: Not on file Number of children: Not on file Years of education: Not on file Highest education level: Not on file Occupational History Not on file Social Needs Financial resource strain: Not on file Food insecurity: Worry: Not on file Inability: Not on file Transportation needs: Medical: Not on file Non-medical: Not on file Tobacco Use Smoking status: Light Tobacco Smoker Packs/day: 0.20 Smokeless tobacco: Never Used Substance and Sexual Activity Alcohol use: Yes Comment: occasional Drug use: No Sexual activity: Never Lifestyle Physical activity: Days per week: Not on file Minutes per session: Not on file Stress: Not on file Relationships Social connections: Talks on phone: Not on file Gets together: Not on file Attends yarsanism service: Not on file Active member of club or organization: Not on file Attends meetings of clubs or organizations: Not on file Relationship status: Not on file Intimate partner violence: Fear of current or ex partner: Not on file Emotionally abused: Not on file Physically abused: Not on file Forced sexual activity: Not on file Other Topics Concern Back Care Not Asked Bike Helmet Not Asked Blood Transfusions Not Asked Caffeine Concern Not Asked Exercise Not Asked Hobby Hazards Not Asked International Travel Not Asked Service Not Asked Occupational Exposure Not Asked Seat Belt Yes Self-Exams Not Asked Sleep Concern Not Asked Special Diet Not Asked Stress Concern Not Asked Weight Concern Not Asked Social History Narrative Not on file REVIEW OF SYSTEMS: All remaining review of systems was negative except for as noted in the history of present illness/subjective. Objective PHYSICAL EXAMINATION: VITALS: BP 104/72 | Pulse 78 | Temp 96.5 F (35.8 C) | Ht 5' 5" ( 1.651 m) | Wt 356 lb (161.5 kg) | LMP 06/08/2016 (Approximate) | BMI 59.24 kg /m Body mass index is 59.24 kg/m. GENERAL: alert, oriented, no acute distress. HEENT: No scleral icterus, MMM Psych: Affect normal Neck: supple LUNGS: clear to auscultation bilaterally. HEART: regular rhythm, no murmurs, no gallops, no rubs. ABDOMEN: general exam: soft, mild diffuse tenderness, obese, normal active bowel sounds. Extrmities: no edema Skin: clear Neuro: gait normal, a&o x 3 RECTAL: exam deferred. Labs: Lab Results Component Value Date NA 138 12/09/2018 K 4.0 12/09/2018 CL 109 (H) 12/09/2018 CO2 22 12/09/2018 GLUCOSE 92 12/09/2018 BUN 15 12/09/2018 CREATININE 0.8 12/09/2018 CALCIUM 9.6 12/09/2018 TP 7.5 12/09/2018 ALBUMIN 4.0 12/09/2018 AST 33 12/09/2018 ALT 32 12/09/2018 ALK 66 12/09/2018 TBILI 0.2 12/09/2018 EGFR >60 12/09/2018 Lab Results Component Value Date GLYCO 5.8 (H) 07/10/2018 Lab Results Component Value Date TSH 2.61 07/10/2018 Lab Results Component Value Date CHOL 169 07/31/2017 TRIG 62 07/31/2017 HDL 48 07/31/2017 LDL 109 (H) 07/31/2017 LDLHDLRATIO 2.3 07/31/2017 CHOLHDLRATIO 3.5 07/31/2017 IMPRESSION: ICD-9-CM ICD-10-CM 1. NAFL (nonalcoholic fatty liver) 571.8 K76.0 2. Morbidly obese (HCC) 278.01 E66.01 REFER TO BARIATRIC/WGT MGMT Plan PLAN: Patient Instructions 1. Referral placed to [facility] 2. Keep up the hard work, daily activity and exercise, monitoring intake, eating leaner foods and increasing fruits and vegetable intake 3. Follow up after the above Thank you for choosing the [facility] for your needs today! -Bhavya Ramos N.P. , Please call if you need to cancel or change your appt. time. Thank you for choosing [facility] for your health care needs, and for consulting with [facility] today. You may receive a survey following this visit, or after an upcoming hospital stay. As easy as it is to feel overloaded with surveys, we are required to send them out randomly and they do provide important feedback so that we may serve your needs in the best way. Please do take the few minutes required to complete the survey if you receive one. We get them too, after seeing the doctor, and they only take a few minutes to complete. Author: Bhavya Ramos NP 01/02/2019 09:05 documented in this encounter Plan of Treatment Name Type Priority Associated Diagnoses Order Schedule REFER TO BARIATRIC/WGT Referral Routine Morbidly obese (HCC) Expected: , MGMT Expires: 01/03/2020 Health Maintenance Due Date Last Done Comments MEDICARE ANNUAL WELLNESS VISIT 1985 PNEUMOCOCCAL 0-64 YRS (1 of 1 1993 - PPSV23) DEPRESSION SCREENING 01/02/2019 01/02/2018 PAP SMEAR 06/29/2019 06/29/2016, 06/29/2016, 06/29/2016 HPV IMMUNIZATION SERIES Aged Out No longer eligible based on patient's age to complete this topic MENINGOCOCCAL VACCINE IMM Aged Out No longer eligible based on patient's age to complete this topic documented as of this encounter Results Not on filedocumented in this encounter Visit Diagnoses Diagnosis NAFL (nonalcoholic fatty liver) - Primary Other chronic nonalcoholic liver disease Morbidly obese (HCC) Morbid obesity documented in this encounter Insurance Payer Benefit Plan / Subscriber ID Effective Dates Phone Address Type Group [place] xxxxxxxx 2016-Present Medicaid [place] Guarantor Name Account Type Relation to Date of Phone Billing Address Patient Zuleika Choudhury Personal/Famil 1985 [address] (Home) [place], [place] [phone] (Work) documented as of this encounter
--- OUTSIDE RECORDS SUMMARY | 2019-01-04 09:30 | XMS REPORT | Continuity of Care Document ---
:1985 External Reference #:[id number] Author Name Mehdi Caro M.D. (transmitted by agent of provider Karol Ray) Address [address] [place] [id number] Care Team Providers Name Role Phone Chantell Tena MD - Internal Care Team Information Fire Controlman [phone] Medicine Jo Whitaker MD - Family Care Team Information Fire Controlman Medicine Problems Active Problems Provider Date Morbid obesity Kiya Salcedo M.D. Onset: 07/02/2014 Alcoholism Kiya Salcedo M.D. Onset: 07/02/2014 Gastritis Kiya Salcedo M.D. Onset: 07/02/2014 Light cigarette smoker (1-9 cigs/day) Kiya Salcedo M.D. Onset: 07/28/2014 Social History Type Date Description Comments Sex Unknown Tobacco Use Start: Unknown current cigarette Smokes 2-3 per day and smoker has been smoking since age 20 Smoking Status Reviewed: 12/20/18 current cigarette Smokes 2-3 per day and smoker has been smoking since age 20 ETOH Use Has consumed alcohol liquor /beer started in the past drinking at age 20 , heavy drinking at age 23 ETOH Use Occasionally consumes alcohol Recreational Drug Use Current Drug User marijuana sporadically since age 17 Tobacco Use Start: Unknown Light tobacco smoker (10 or fewer cigarettes/day) Exercise Type/Frequency Exercises sporadically Allergies, Adverse Reactions, Alerts Description No Known Drug Allergies Medications Active Medications SIG Qnty Indications Ordering Provider Date Three-Panel Binder For Use nightly as a R06.00 Mehdi Caro, 12/20/2018 Women/2-Xlarge support for Jaleel Bind 2XL abdomen and back Misc Omeprazole 1 by mouth every Unknown 20mg Capsules day DR Gabapentin 1 by mouth every Unknown 300mg Capsules morning Loratadine 1 by mouth every Unknown 10mg Tablets day Immunizations Description No Information Available Vital Signs Date Vital Result Comment 12/20/2018 9:42am Height 65 inches 5'5" Weight 353.25 lb Heart Rate 82 /min BP Systolic Sitting 110 mmHg BP Diastolic Sitting 76 mmHg Pain Level 6 O2 % BldC Oximetry 98 % BMI (Body Mass Index) 58.8 kg/m2 02/04/2018 11:35am Height 65 inches 5'5" Weight 361.00 lb Heart Rate 88 /min BP Systolic Sitting 104 mmHg BP Diastolic Sitting 70 mmHg Respiratory Rate 14 /min O2 % BldC Oximetry 96 % BMI (Body Mass Index) 60.1 kg/m2 Results Description No Information Available Procedures Description No Information Available Medical Devices Description No Information Available Encounters Description No Information Available Assessments Date Code Description Provider 12/20/2018 M60.9 Myositis, unspecified Mehdi Caro M.D. 12/20/2018 R06.00 Dyspnea, unspecified Mehdi Caro M.D. 12/20/2018 R20.8 Other disturbances of skin sensation Mehdi Caro M.D. 12/20/2018 M54.5 Low back pain Mehdi Caro M.D. 12/20/2018 M54.2 Cervicalgia Mehdi Caro M.D. 12/20/2018 K76.0 Fatty (change of) liver, not elsewhere Mehdi Caro M.D. classified Plan of Treatment Future Appointment(s):01/23/2019 10:40 am - [facility] at [facility]12/20/2018 - Mehdi Caro M.D.M60.9 Myositis, [id number] Dyspnea, unspecifiedNew Medication:Three-Panel Binder For Women/2-Xlarge Bind 2XL - Use nightly as a support for abdomen and backR20.8 Other disturbances of skin [id number] Low back painM54.2 [id number] Fatty (change of) liver, not elsewhere classifiedFollow up:Follow up in 3 to 4 weeks or sooner if needed Functional Status Description No Information Available Mental Status Description No Information Available Referrals Description No Information Available
[2019-01-04 09:31] VITALS: BP 120/79
[2019-01-04] MEDS ORDERED: Lidocaine Patch REMOVE* 1 NOTE MISC SCH (21:00)
== END 2019-01-04 09:30 | disposition home or self-care (01) ==
LOC: ED 08:28
DX: M54.9 Dorsalgia, unspecified (principal); R20.0 Anesthesia of skin; R20.2 Paresthesia of skin; E05.90 Thyrotoxicosis, unspecified without thyrotoxic crisis or storm; F17.200 Nicotine dependence, unspecified, uncomplicated; Z79.899 Other long term (current) drug therapy; Z88.6 Allergy status to analgesic agent
CPT/HCPCS: 99282; A9270-GY; J7512

== ENCOUNTER 2019-03-02 10:37 | Emergency (ER) | payer MEDICAID ==
[2019-03-02] MEDS ORDERED: NS 0.9% 1000 ML** 1,000 ML IV ONE (11:09)
[2019-03-02] MEDS ORDERED: Morphine 4 MG/ML VIAL (1 ml) 4 MG/ML VIAL IV ONE (11:12)
[2019-03-02] MEDS ORDERED: Ondansetron INJ* 2 MG/ML VIAL IV ONE (11:12)
[2019-03-02 12:04] LABS: ABS Basophils 0.1 10^3/ul (0-0.2); ABS Eosinophils 0.1 10^3/ul (0-0.6); ABS Lymphocytes 1.7 10^3/ul (1.0-4.8); ABS Monocytes 0.5 10^3/ul (0-0.8); ABS Neutrophils 4.2 10^3/ul (1.5-7.7); Eosinophil % 2.2 %; Hematocrit 39 % (35-47); Hemoglobin 12.5 g/dL (12.0-16.0); Mean Corpuscular HGB Conc 32 g/dL (31-36); Mean Corpuscular Hemoglobin 28 pg (27-31); Mean Corpuscular Volume 87 fL (80-97); Mean Platelet Volume 8.9 fL (7.4-10.4); Nucleated Red Blood Cells % 0.1; Platelet Count 254 10^3/uL (150-450); Red Blood Count 4.41 10^6 /uL (3.70-4.87); Red Cell Distribution Width 14 % (10-15); White Blood Count 6.7 10^3/uL (3.5-10.8)
[2019-03-02 12:20] LABS: Albumin 3.7 g/dL (3.2-5.2); Albumin/Globulin Ratio 1.2 (1-3); BUN/Creatinine Ratio 15.4 (8-20); Calcium 9.2 mg/dL (8.6-10.3); EGFR African American 104.2 (>60); EGFR Non-African American 86.1 (>60); Globulin 3.2 g/dL (2-4); Potassium 3.7 mmol/L (3.5-5.0); Total Bilirubin 0.4 mg/dL (0.2-1.0); Total Protein 6.9 g/dL (6.4-8.9)
[2019-03-02] MEDS ORDERED: Iohexol 300* (CONTRAST) 10 ML SDV IV ONE (12:25)
--- NOTE | 2019-03-02 12:29 | ED ---
Abdominal Pain/Female - HPI Summary HPI Summary: 33 year old female presents to the ED with a chief complaint of lower abdominal and groin pain starting 2 weeks ago, worsened last night. The pain is described as stabbing and tearing, mostly in the RLQ and groin radiating to her back, with a severity of 9/10. Patient went to the bathroom last night when the pain worsened severely. She has had constipation for several days but had a bowel movement this morning that was extremely painful. She has dysuria and a burning feeling in her groin. Patient has a constant urgency but is unable to empty her bladder. Pt denies any fever, chills, erythema of eyes, sore throat, CP, cough, N/V, hematuria, myalgia, edema, rash, or dizziness. Additionally, she reports SOB. PSHx of hysterectomy and bilateral oophorectomy 3 years ago. - History of Current Complaint Chief Complaint: EDAbdPain Stated Complaint: LOWER ABD PAIN PER EMS Time Seen by Provider: 03/02/19 10:38 Hx Obtained From: Patient ?: No Onset/Duration: Sudden Onset, Lasting Weeks, Worse Since - last night Timing: Constant Severity Initially: Mild Severity Currently: Severe Pain Intensity: 9 Pain Scale Used: 0-10 Numeric Location: Discrete At: RLQ, Groin Radiates: Yes Radiates to: Back Character: Sharp, Burning, Tearing Aggravating Factor(s): Other: - urination, bowel movement Alleviating Factor(s): Nothing Associated Signs and Symptoms: Positive: Back Pain, Constipation, Urinary Symptoms. Negative: Diaphoresis, Fever, Cough, Chest Pain, Dizzy Allergies/Adverse Reactions: Allergies Allergy/AdvReac Type Severity Reaction Status Date / Time NSAIDS (Non-Steroidal Allergy GI Upset Verified 01/04/19 08:38 Anti-Inflamma PMH/Surg Hx/FS Hx/Imm Hx Endocrine/Hematology History: Reports: Hx Thyroid Disease - Hyperthyroid Denies: Hx Diabetes Cardiovascular History: Denies: Hx Angioplasty, Hx Hypertension, Hx Pacemaker/ICD GI History: Reports: Other GI Disorders - GASTRIC ULCER History: Denies: Hx Dialysis, Hx Renal Disease Sensory History: Reports: Hx Contacts or Glasses Opthamlomology History: Reports: Hx Contacts or Glasses Psychiatric History: Reports: Hx of Violent Episodes Against Others, Hx Substance Abuse - ETOH abuse Denies: Hx Eating Disorder, Hx Panic Disorder - Surgical History Surgery Procedure, Year, and Place: SURGERY FOR FIBROIDS - Immunization History Date of Tetanus Vaccine: 2010 Date of Influenza Vaccine: None Infectious Disease History: No Infectious Disease History: Denies: Traveled Outside the [place] in Last 30 Days - Family History Known Family History: Positive: Hypertension, Diabetes, Other - carpal tunnel Negative: Blood Disorder - clots - Social History Alcohol Use: Occasionally Alcohol Amount: approx 2 beers when she can get it Hx Substance Use: Yes Substance Use Type: Reports: Marijuana Substance Use Comment - Amount & Last Used: occasionally Hx Tobacco Use: Yes Smoking Status (MU): Light Every Day Tobacco Smoker Review of Systems Negative: Fever, Chills, Skin Diaphoresis Negative: Erythema Negative: Sore Throat Negative: Chest Pain Positive: Shortness Of Breath. Negative: Cough Positive: Abdominal Pain, Other - constipation, painful bowel movement. Negative: Vomiting, Nausea Positive: burning, dysuria, frequency, pain, urgency. Negative: hematuria Negative: Myalgia, Edema Negative: Rash Neurological: Negative - neg - dizziness All Other Systems Reviewed And Are Negative: Yes Physical Exam - Summary Physical Exam Summary: Constitutional: Limited by morbid obesity. Alert. (-) Distressed Skin: Warm, Dry HENT: Normocephalic; Atraumatic Eyes: Conjunctiva normal Neck: Musculoskeletal ROM normal neck. (-) JVD, (-) Stridor, (-) Tracheal deviation Cardio: Rhythm regular, rate normal, Heart sounds normal; Intact distal pulses; The pedal pulses are 2+ and symmetric. Radial pulses are 2+ and symmetric. (-) Murmur Pulmonary/Chest wall: Effort normal. (-) Respiratory distress, (-) Wheezes, (-) Rales Abd: Soft, mild right CVA and RLQ tenderness, (-) Distension, (-) Guarding, (-) Rebound Musculoskeletal: (-) Edema Lymph: (-) Cervical adenopathy Neuro: Alert, Oriented x3 Psych: Mood and affect Normal Triage Information Reviewed: Yes Vital Signs On Initial Exam: Initial Vitals Temp Pulse Resp BP Pulse Ox 97.7 F 70 20 128/69 99 03/02/19 10:38 03/02/19 10:38 03/02/19 10:38 03/02/19 10:38 03/02/19 10:38 Vital Signs Reviewed: Yes Procedures - Sedation Patient Received Moderate/Deep Sedation with Procedure: No Diagnostics - Vital Signs Vital Signs Temp Pulse Resp BP Pulse Ox 03/02/19 12:11 19 03/02/19 10:38 97.7 F 70 20 128/69 99 - Laboratory Lab Results: Lab Results 03/02/19 03/02/19 03/02/19 Range/Units 11:26 11:26 11:26 WBC 6.7 (3.5-10.8) 10^3/uL RBC 4.41 (3.70-4.87) 10^6 /uL Hgb 12.5 (12.0-16.0) g/dL Hct 39 (35-47) % MCV 87 (80-97) fL MCH 28 (27-31) pg MCHC 32 (31-36) g/dL RDW 14 (10-15) % Plt Count 254 (150-450) 10^3/uL MPV 8.9 (7.4-10.4) fL Neut % (Auto) 62.7 % Lymph % (Auto) 26.0 % [place] % (Auto) 7.9 % Eos % (Auto) 2.2 % Baso % (Auto) 1.2 % Absolute Neuts (auto) 4.2 (1.5-7.7) 10^3/ul Absolute Lymphs (auto) 1.7 (1.0-4.8) 10^3/ul Absolute Monos (auto) 0.5 (0-0.8) 10^3/ul Absolute Eos (auto) 0.1 (0-0.6) 10^3/ul Absolute Basos (auto) 0.1 (0-0.2) 10^3/ul Absolute Nucleated RBC 0.0 10^3/ul Nucleated RBC % 0.1 Sodium 135 (135-145) mmol/L Potassium 3.7 (3.5-5.0) mmol/L Chloride 106 (101-111) mmol/L Carbon Dioxide 25 (22-32) mmol/L Anion Gap 4 (2-11) mmol/L BUN 12 (6-24) mg/dL Creatinine 0.78 (0.51-0.95) mg/dL Est GFR ( Amer) 104.2 (>60) Est GFR (Non-Af Amer) 86.1 (>60) BUN/Creatinine Ratio 15.4 (8-20) Glucose 106 H (70-100) mg/dL Lactic Acid 0.7 (0.5-2.0) mmol/L Calcium 9.2 (8.6-10.3) mg/dL Total Bilirubin 0.40 (0.2-1.0) mg/dL AST 17 (13-39) U/L ALT 29 (7-52) U/L Alkaline Phosphatase 53 (34-104) U/L C-Reactive Protein 15.00 H (<8.01) mg/L Total Protein 6.9 (6.4-8.9) g/dL Albumin 3.7 (3.2-5.2) g/dL Globulin 3.2 (2-4) g/dL Albumin/Globulin Ratio 1.2 (1-3) Lipase 11 (11.0-82.0) U/L Result Diagrams: 03/02/19 11:26 03/02/19 11:26 Lab Statement: Any lab studies that have been ordered have been reviewed, and results considered in the medical decision making process. - CT AP CT CT Interpretation Completed By: Radiologist Summary of CT Findings: Impression shows no acute pathology of the abdomen or pelvis. An ED physician has reviewed this report. Abdominal Pain Fem Course/Dx - Course Course Of Treatment: 33 year old morbidly obese female presents to the ED with RLQ and groin pain that radiates to her back starting 2 weeks ago but getting much worse last night. She has had constipation for several days but had a bowel movement this morning with pain. She reports painful urination with frequent urgency. Patient also reports SOB. PE limited by morbid obesity. Mild right CVA and RLQ tenderness. Laboratory shows C-reactive protein of 15.00. A/ P CT shows no acute pathology of the abdomen or pelvis. Diagnosis is chronic abdominal pain and bacterial vaginosis. Due to her pain, I gave her Iohexol 150 ml IV, metronidazole 500 mg PO, morphine sulfate 4 mg IV, ondansetron HCl 4 mg IV, oxycodone/acetaminophen 1 tab PO, and sodium chloride 1000 mls IV. Patient is being discharged home. She should follow up with her primary care provider in 2-3 days. Return to the ED if she experiences new or worsened symptoms. The patient had no signs or symptoms of acute surgical abdomen, she is status post appendectomy.. She is tolerating oral intake at the time of discharge. Currently pain-free. - Diagnoses Provider Diagnoses: Chronic abdominal pain, Bacterial vaginosis Is Visit Related: No Discharge ED - Sign-Out/Discharge Documenting (check all that apply): Patient Departure - discharge - Discharge Plan Condition: Stable Disposition: HOME Prescriptions: metroNIDAZOLE [Flagyl 500 MG TAB] 500 mg PO TID #21 tab traMADol TAB* [Ultram*] 50 mg PO Q6HR PRN #10 tab MDD 4 PRN Reason: Pain - Severe Patient Education Materials: Bacterial Vaginosis (ED), Chronic Abdominal Pain ( ED) Forms: *Work Release Referrals: Holger Johnosn DO [Primary Care Provider] - Additional Instructions: Follow up with your primary care provider in 2-3 days. Return to the emergency department if you experience new or worsened symptoms. - Billing Disposition and Condition Condition: STABLE Disposition: Home - Attestation Statements Document Initiated by Scribe: Yes Documenting Scribe: Km Herrera Provider For Whom Kerry is Documenting (Include Credential): Doug Segundo MD. Scribe Attestation: Km Finney scribed for Doug Segundo MD. on 03/03/19 at 0851. Scribe Documentation Reviewed: Yes Provider Attestation: The documentation as recorded by the Km alcaraz accurately reflects the service I personally performed and the decisions made by Doug brown MD. Status of Scribe Document: Viewed
[2019-03-02 12:45] LABS: Urine Appearance Cloudy; Urine Bilirubin Negative (Negative); Urine Blood Negative (Negative); Urine Color Yellow; Urine Glucose Negative (Negative); Urine Ketones Negative (Negative); Urine Nitrite Negative (Negative); Urine Protein Negative (Negative); Urine Specific Gravity 1.024 (1.010-1.030); Urine Urobilinogen Negative (Negative)
--- OUTSIDE RECORDS SUMMARY | 2019-03-02 12:45 | XMS REPORT | Summary of Care ---
:1985 Author Organization [facility] Address [address] [place] [address] Care Team Providers Name Role Phone Elizabeth Holger Barbosa Primary Care Provider Reason for Referral Bariatrics (Routine) Status Reason Specialty Diagnoses / Referred By Referred To Procedures Contact Contact Pending Review Surgical Weight Bariatrics Diagnoses Morbidly obese (HCC) Cristine Castro MD [address] [place] [address] Reason for Visit Reason Comments Weight Gain Obesity New Patient Bariatrics (Routine) Status Reason Specialty Diagnoses / Referred By Referred To Procedures Contact Contact Closed Medical Management Bariatrics Diagnoses Morbidly obese (HCC) Matthew Ramos, (Nonsurgical) LUCIA Crystal MD Weight Loss [address] [place] [address] [place] [address] Phone: Fax: Encounter Details Date Type Department Care Team Description 02/03/2019 Office Visit [facility] Matthew, Morbidly obese (HCC) ( Primary Dx); Bariatrics - Rosa Tam MD Elevated hemoglobin A1c; [address] Gastroesophageal reflux disease, esophagitis presence not specified; Street [place] [address] Other back pain, unspecified chronicity [place] [address] Allergies Active Allergy Reactions Severity Noted Date Comments Nsaids GI Reaction 01/15/2018 documented as of this encounter (statuses as of 02/03/2019) Medications Medication Sig Dispensed Refills Start Date End Date Status mometasone (NASONEX) 50 [place] 1 Naco in 1 Bottle 0 12/09/2018 Active MCG/ACT Nasal nose EVERY TWELVE SuspensionIndications: HOURS. 2 sprays ETD (Eustachian tube in each nostril dysfunction), right once daily pantoprazole (PROTONIX) Take 1 Tab by 90 Tab 0 12/09/2018 Active 40 MG Oral Tab mouth BEFORE ECIndications: BREAKFAST. Abdominal pain, unspecified abdominal location gabapentin (NEURONTIN) Take 1 Cap by 90 Cap 4 01/03/2019 Active 300 MG Oral Cap mouth THREE TIMES DAILY. documented as of this encounter (statuses as of 02/03/2019) Active Problems Problem Noted Date Morbidly obese 01/02/2019 NAFL (nonalcoholic fatty liver) 01/15/2018 Class 3 obesity with body mass index (BMI) of 50.0 to 59.9 in adult 09/12/2017 Family history of alcoholism 09/12/2017 Alcohol abuse 09/12/2017 documented as of this encounter (statuses as of 02/03/2019) Social History Tobacco Use Types Packs/Day Years Used Date Heavy Tobacco Smoker 1 5 Smokeless Tobacco: Never Used Comments: willing to quit Alcohol Use Drinks/Week oz/Week Comments Yes 1 Cans of beer 2.0 occasional 1 Glasses of wine Sex Assigned at Date Recorded Not on file Job Start Date Occupation Industry Not on file Not on file Not on file Travel History Travel Start Travel End No recent travel history available. documented as of this encounter Last Filed Vital Signs Vital Sign Reading Time Taken Comments Blood Pressure 110/82 02/03/2019 3:06 PM EDT Pulse 99 02/03/2019 3:06 PM EDT Temperature - - Respiratory Rate - - Oxygen Saturation 98% 02/03/2019 3:06 PM EDT Inhaled Oxygen Concentration - - Weight 160.3 kg (353 lb 8 oz) 02/03/2019 3:06 PM EDT Height 165.1 cm (5' 5") 02/03/2019 3:06 PM EDT Body Mass Index 58.83 02/03/2019 3:06 PM EDT documented in this encounter Progress Notes Anel Castro MD - 02/03/2019 3:00 PM EDT PATIENT: Zuleika Choudhury : 1985 DATE OF SERVICE: 02/03/2019 REFERRING PRACTITIONER: Bhavya Ramos PRIMARY CARE PROVIDER: Holger Johnson Chief Complaint Patient presents with Weight Gain Obesity New Patient HISTORY OF PRESENT ILLNESS: Zuleika Choudhury is a 33-y.o. female who presents for a new visit for evaluation and treatment ofobesity. The patient cites health concerns (obesity , prediabetes, GERD, back pain) as reason(s) forwanting to lose weight. The history was obtained from the patient who was reliable. DURATION: She has been obese for several years. She went through the bariatric surgery program in [place] but did not go through with this. ASSOCIATED SIGNS/SYMPTOMS: She experiences the following limitations as a result of obesity: none. SEVERITY: Her BMI falls in the category of morbid obesity BMI > 50. The patient reports Her highest adult weight at 357 lbs, lowest adult weight at 343 lbs and current weight at 354 lbs. MODIFYING FACTORS:She has engaged in the following weight loss efforts:- per the nurse's note - reviewed with patient. 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 Nursing Notes: Funmilayo Vásquez LPN 02/03/2019 3:14 PM Signed HISTORY OF WEIGHT LOSS EFFORTS: The [place] Sleepiness Scale Sitting and reading: Moderate chance of dozing Watching television: Moderate chance of dozing Sitting inactive in a public place - for example, a theater or meeting: Would never doze As a passenger in a car for an hour without a break: Slight chance of dozing Lying down to rest in the afternoon: Slight chance of dozing Sitting and talking to someone: Would never doze Sitting quietly after lunch (when you've had no alcohol): Slight chance of dozing In a car, while stopped in traffic: Would never doze Total Score: 7 I reviewed new patient questionnaire and nursing note. I agree with the nursing note as documented. Past Medical History: Diagnosis Date Acid reflux Arthritis Past Surgical History: Procedure Laterality Date FL TOTAL ABDOM HYSTERECTOMY Family History Problem Relation Age of Onset No Known Problems Mother No Known Problems Father No Known Problems Sister Social History Tobacco Use Smoking status: Heavy Tobacco Smoker Packs/day: 1.00 Years: 5.00 Pack years: 5.00 Smokeless tobacco: Never Used Tobacco comment: willing to quit Substance Use Topics Alcohol use: Yes Alcohol/week: 2.0 standard drinks Types: 1 Cans of beer, 1 Glasses of wine per week Comment: occasional Social History Substance and Sexual Activity Drug Use No Social History Substance and Sexual Activity Sexual Activity Never Current Outpatient Medications Medication Sig gabapentin (NEURONTIN) 300 MG Oral Cap Take 1 Cap by mouth THREE TIMES DAILY. mometasone (NASONEX) 50 MCG/ACT Nasal Suspension Naco 1 Naco in nose EVERY TWELVE HOURS. 2 sprays in each nostril once daily pantoprazole (PROTONIX) 40 MG Oral Tab EC Take 1 Tab by mouth BEFORE BREAKFAST. No current facility-administered medications for this visit. Allergies Allergen Reactions Nsaids GI Reaction REVIEW OF SYSTEMS: CONSTITUTIONAL: negative. EYES: negative. EARS, NOSE, MOUTH, THROAT and FACE: negative. RESPIRATORY: negative. CARDIOVASCULAR: negative. GASTROINTESTINAL: negative. GENITOURINARY: negative. INTEGUMENT/BREAST: negative. HEMATOLOGIC/LYMPHATIC: negative. MUSCULOSKELETAL: negative. NEUROLOGICAL: Negative. PSYCH: Negative. SLEEP: rare snoring; frequent day time fatigue, Dutch John sleepiness scale score is 6 to 7 PHYSICAL EXAMINATION: VITALS: BP 110/82 | Pulse 99 | Ht 5' 5" (1.651 m) | Wt 353 lb 8 oz (160.3 kg ) | LMP 06/08/2016 (Approximate) | SpO2 98% | BMI 58.83 kg/m BODY COMPOSITION LEAN BODY MASS (lbs): 158.7 lbs BODY FAT MASS (lbs): 194.8 lbs BMI (Calculated): 58.83 Body Fat %: 55.1 % BASAL METABOLIC RATE (kcal): 1925 kcal EXCESS BODY FAT (lbs): 147.5 lbs VISCERAL FAT AREA (cm2): 289.8 cm2 LEAN BODY MASS DEFICIT (lbs): 0 lbs NECK CIRCUMFERENCE (in): 17 in WAIST CIRCUMFERENCE (in): 57 in HIP CIRCUMFERENCE (in): 63 in GENERAL: alert, oriented, no acute distress, morbidly obese. SKIN: acanthosis nigricans present. abdominal striae. HEAD: Normocephalic. No masses, lesions, tenderness or abnormalities. MOUTH: moist mucus membranes. Mallampati score: IV EYES: conjunctivae/corneas clear. Pupils equal, round, reactive to light. Extra -ocular movements intact. NECK: no mass, no adenopathy, no thyromegaly. PULMONARY: clear to auscultation bilaterally. CARDIOVASCULAR: regular rhythm, no murmurs, no gallops, no rubs. ABDOMEN: soft, non tender, without masses or organomegaly, truncal adiposity present. MUSCULOSKELETAL: no clubbing, cyanosis, or edema. NEUROLOGICAL: alert and oriented x3. PSYCH: Appropriate mood and affect LABORATORY STUDIES: Triglycerides Date Value Ref Range Status 07/31/2017 62 <150 mg/dL Final HDL Cholesterol Date Value Ref Range Status 07/31/2017 48 35 - 60 mg/dL Final LDL Cholesterol Date Value Ref Range Status 07/31/2017 109 <100 mg/dl Final TSH Date Value Ref Range Status 07/10/2018 2.61 0.47 - 4.68 uIu/ml Final 10/10/2004 1.64 0.32 - 5.00 uIu/ml Final IMPRESSION: ICD-9-CM ICD-10-CM 1. Morbidly obese (HCC) 278.01 E66.01 REFER TO BARIATRIC/WGT MGMT REFER TO BARIATRIC/WGT MGMT 2. Elevated hemoglobin A1c 790.29 R73.09 GLYCOHEMOGLOBIN (AMB POCT) 3. Gastroesophageal reflux disease, esophagitis presence not specified 530.81 K21.9 4. Other back pain, unspecified chronicity 724.5 M54.89 Obesity with Body mass index is 58.83 kg/m. and comorbidities as noted above. PLAN: Zuleika Choudhury is a 33-y.o. year-old female with Body mass index is 58.83 kg /m. Obesity Class III Percentage of body fat at 55.1% I have discussed the options of medical and surgical weight management. At this time, we will proceed with surgical management. She has 147.5 lbs of excess body fat. Recommended weight goal is 206 lbs. Caloric restriction to 1400 calories per day; 30 g protein per meal, 30 g carbs per meal. Exercise - moderate intensity exercise 30 minutes 5 times a week Refer to surgery Request records from Dr. Merino's office Elevated A1c - 5.9 Carb restriction and exercise as above Will continue to monitor periodically Check insulin level GERD Likely some element of fat mass effect Expect improvement in symptoms as weight loss progresses Back Pain Likely will see improvement in symptoms with weight loss Health Maintenance Age appropriate screening for obesity related cancers/health maintenance I spent a total of 45 minutes with this patient, over half of which was devoted to counseling/coordination of care. We discussed in great detail, the treatment plan, treatment options, and/or alternatives to the treatment. Specifically we discussed : risks of obesity; lifestyle changes necessary for long-term success with weight management, including a regular exercise program and a focus on healthy eating; the need for chronic self-management of obesity. Follow up: 2 weeks Author: Anel Castro MD 02/03/2019 15:14 documented in this encounter Plan of Treatment Date Type Specialty Care Team Description 03/10/2019 Office Visit Bariatrics Anel Castro MD [address] [address] [phone] Name Type Priority Associated Diagnoses Order Schedule REFER TO BARIATRIC/WGT Referral Routine Morbidly obese (HCC) Expected: , MGMT Expires: 02/04/2020 Health Maintenance Due Date Last Done Comments [...] this topic documented as of this encounter Procedures Procedure Name Priority Date/Time Associated Comments Diagnosis GLYCOHEMOGLOBIN (AMB Routine 02/03/2019 3:36 Elevated Results for this POCT) PM EDT hemoglobin A1c procedure are in the results section. documented in this encounter Results GLYCOHEMOGLOBIN (AMB POCT) (02/03/2019 3:36 PM EDT) GLYCOHEMOGLOBIN (POCT) 5.9 (A) 3.9 - 5.6 % [facility] POCT Specimen Performing Organization Address City/State/Zipcode Phone Number [facility] [address] [address] documented in this encounter Visit Diagnoses Diagnosis Morbidly obese (HCC) - Primary Morbid obesity Elevated hemoglobin A1c Other abnormal blood chemistry Gastroesophageal reflux disease, esophagitis presence not specified Other back pain, unspecified chronicity documented in this encounter Insurance Payer Benefit Plan / Subscriber ID Effective Dates Phone Address Type Group [place] xxxxxxxx 2016-Present Medicaid [place] Guarantor Name Account Type Relation to Date of Phone Billing Address Patient MaceyZuleika Personal/Famil 1985 [address] (Home) [place], [place] [phone] (Work) documented as of this encounter
[2019-03-02] MEDS ORDERED: oxyCODONE/Acetamin 5/325 MG* TAB PO ONE (13:45)
[2019-03-02] MEDS ORDERED: metroNIDAZOLE TAB* 250 MG PO ONE ×2 (14:43→15:28)
[2019-03-02 15:23] VITALS: BP 132/69
[2019-03-02] MEDS ORDERED: metroNIDAZOLE TAB* 250 MG ONE ×2 (15:29)
[2019-03-03 13:37] LABS: Chlamydia trachomatis NAA Negative (Negative); Neisseria gonorrhoeae (GC) NAA Negative (Negative)
== END 2019-03-02 15:24 | disposition home or self-care (01) ==
LOC: ED 10:37
DX: R10.9 Unspecified abdominal pain (principal); G89.29 Other chronic pain; N76.0 Acute vaginitis; B96.89 Other specified bacterial agents as the cause of diseases classified elsewhere; Z90.722 Acquired absence of ovaries, bilateral; Z90.710 Acquired absence of both cervix and uterus; E05.90 Thyrotoxicosis, unspecified without thyrotoxic crisis or storm; F17.200 Nicotine dependence, unspecified, uncomplicated; Z88.6 Allergy status to analgesic agent
CPT/HCPCS: 36415; 74177; 80053; 81003; 83605; 83690; 85025; 86140; 87480; 87491; 87510; 87591; 87661; 96361; 96374; 96375; 99283; A9270-GY; J2270; J2405; Q9967

== ENCOUNTER 2019-07-08 03:44 | Emergency (ER) | payer MEDICAID, MEDICARE ==
--- OUTSIDE RECORDS SUMMARY | 2019-07-08 03:57 | XMS REPORT | Summary of Care ---
:1985 Author Organization [facility] Address [address] [place] [address] Care Team Providers Name Role Phone Marva Peck Primary Care Provider Reason for Referral Refer to Department Only (Routine) Status Reason Specialty Diagnoses / Referred By Referred To Procedures Contact Contact Pending Review GENERAL SURGERY Diagnoses Abscess of right breast Liv, / General Marva NP Surgery [id number] Scheduling Instructions Dr. Albert or Dr. Shell Reason for Visit Reason Comments Check Up lump under R breast still painful Encounter Details Date Type Department Care Team Description 06/19/2019 Office Visit [facility], Abscess of right breast (Primary Dx); Practice [employer] [place] [address] [facility] [address] [place] [address] [place] [address] [phone] Allergies Active Allergy Reactions Severity Noted Date Comments Nsaids GI Reaction 01/15/2018 documented as of this encounter (statuses as of 06/19/2019) Medications Medication Sig Dispensed Refills Start Date End Date Status mometasone Jamison 1 1 Bottle 0 12/09/2018 Active (NASONEX) 50 Jam[place] in MCG/ACT Nasal nose EVERY SuspensionIndicatio TWELVE ns: ETD (Eustachian HOURS. 2 tube dysfunction), sprays in right each nostril once daily pantoprazole Take 1 Tab 90 Tab 0 02/24/2019 Active (PROTONIX) 40 MG by mouth Oral Tab BEFORE ECIndications: BREAKFAST. Abdominal pain, unspecified abdominal location gabapentin Take 1 Cap 90 Cap 3 05/19/2019 Active (NEURONTIN) 300 MG by mouth Oral Cap THREE TIMES DAILY. loratadine Take 1 Tab 30 Tab 11 05/19/2019 Active (CLARITIN,ALAVERT) by mouth 10 MG Oral Tab DAILY. doxycycline Take 100 mg 20 Tab 0 05/29/2019 Active (VIBRAMYCIN) 100 MG by mouth Oral TWICE DAILY. TabIndications: Abscess of right breast metroNIDAZOLE Take 500 mg 0 Discontinued (No (FLAGYL) 500 MG by mouth 0 longer clinically Oral Tab THREE TIMES indicated) DAILY. documented as of this encounter (statuses as of 06/19/2019) Active Problems Problem Noted Date Morbidly obese 01/02/2019 NAFL (nonalcoholic fatty liver) 01/15/2018 Class 3 obesity with body mass index (BMI) of 50.0 to 59.9 in adult 09/12/2017 Family history of alcoholism 09/12/2017 Alcohol abuse 09/12/2017 documented as of this encounter (statuses as of 06/19/2019) Social History Tobacco Use Types Packs/Day Years Used Date Heavy Tobacco Smoker 1 5 Smokeless Tobacco: Never Used Comments: willing to quit Alcohol Use Drinks/Week oz/Week Comments Yes 1 Cans of beer 2.0 occasional 1 Glasses of wine Sex Assigned at Date Recorded Not on file documented as of this encounter Last Filed Vital Signs Vital Sign Reading Time Taken Comments Blood Pressure 122/66 06/19/2019 8:49 AM EST Pulse 76 06/19/2019 8:49 AM EST Temperature 36.7 06/19/2019 8:49 AM EST C (98.1 F) Respiratory Rate - - Oxygen Saturation 98% 06/19/2019 8:49 AM EST Inhaled Oxygen Concentration - - Weight 165.6 kg (365 lb) 06/19/2019 8:49 AM EST Height 165.1 cm (5' 5") 06/19/2019 8:49 AM EST Body Mass Index 60.74 06/19/2019 8:49 AM EST documented in this encounter Patient Instructions Patient InstructionsMarva Peck NP - 06/19/2019 9:00 AM ESTSchedule appointment with either Dr. Mercer or Dr. Shell for the breast abscess and possible drainage of this. Do labs today. Use warm compresses on the area of the breast. Tylenol or ibuprofen as needed for pain. Call or return if symptoms worsen or fail to improve, or if you develop fevers chills malaise or other signs of infection. documented in this encounter Progress Notes Marva Peck NP - 06/19/2019 9:00 AM EST PATIENT: Zuleika Choudhury : 1985 DATE OF SERVICE: 06/19/2019 CHIEF COMPLAINT: Chief Complaint Patient presents with ? Check Up lump under R breast still painful Subjective HISTORY OF PRESENT ILLNESS: Zuleika Choudhury is a 34-y.o. female for follow up of painful swelling in right breast. HPI Course of doxycycline in May for abscess right breast. Not helped - spot still there, stenciling machine tender. Not getting worse. No fevers chills body aches. Feels constipated recently, drinking a lot of water - this ongoing for a couple of weeks. Urination frequently - thinks because of all the water she's drinking. A1c Jan 2019 5.9 Past Medical History: Diagnosis Date ? Acid reflux ? Arthritis Family History Problem Relation Age of Onset ? No Known Problems Mother ? No Known Problems Father ? No Known Problems Sister Current Outpatient Medications Medication Sig ? doxycycline (VIBRAMYCIN) 100 MG Oral Tab Take 100 mg by mouth TWICE DAILY. ? gabapentin (NEURONTIN) 300 MG Oral Cap Take 1 Cap by mouth THREE TIMES DAILY. ? loratadine (CLARITIN,ALAVERT) 10 MG Oral Tab Take 1 Tab by mouth DAILY. ? mometasone (NASONEX) 50 MCG/ACT Nasal Suspension Jamison 1 Jamison in nose EVERY TWELVE HOURS. 2sprays in each nostril once daily ? pantoprazole (PROTONIX) 40 MG Oral Tab EC Take 1 Tab by mouth BEFORE BREAKFAST. No current facility-administered medications for this visit. Allergies Allergen Reactions ? Nsaids GI Reaction Social History Socioeconomic History ? Marital status: Single Spouse name: Not on file ? Number of children: Not on file ? Years of education: Not on file ? Highest education level: Not on file Occupational History ? Not on file Social Needs ? Financial resource strain: Not on file ? Food insecurity Worry: Not on file Inability: Not on file ? Transportation needs Medical: Not on file Non-medical: Not on file Tobacco Use ? Smoking status: Heavy Tobacco Smoker Packs/day: 1.00 Years: 5.00 Pack years: 5.00 ? Smokeless tobacco: Never Used ? Tobacco comment: willing to quit Substance and Sexual Activity ? Alcohol use: Yes Alcohol/week: 2.0 standard drinks Types: 1 Cans of beer, 1 Glasses of wine per week Comment: occasional ? Drug use: No ? Sexual activity: Never Lifestyle ? Physical activity Days per week: Not on file Minutes per session: Not on file ? Stress: Not on file Relationships ? Social connections Talks on phone: Not on file Gets together: Not on file Attends rastafari service: Not on file Active member of club or organization: Not on file Attends meetings of clubs or organizations: Not on file Relationship status: Not on file ? Intimate partner violence Fear of current or ex partner: Not on file Emotionally abused: Not on file Physically abused: Not on file Forced sexual activity: Not on file Other Topics Concern ? Back Care Not Asked ? Bike Helmet Not Asked ? Blood Transfusions Not Asked ? Caffeine Concern Not Asked ? Exercise Not Asked ? Hobby Hazards Not Asked ? International Travel Not Asked ? Service Not Asked ? Occupational Exposure Not Asked ? Seat Belt Yes ? Self-Exams Not Asked ? Sleep Concern Not Asked ? Special Diet Not Asked ? Stress Concern Not Asked ? Weight Concern Not Asked Social History Narrative REVIEW OF SYSTEMS: Review of Systems Constitutional: Negative for chills, fever and malaise/fatigue. Gastrointestinal: Positive for constipation. Negative for abdominal pain, blood in stool, diarrhea, nausea and vomiting. Genitourinary: Positive for frequency. Negative for dysuria, hematuria and urgency. Skin: See hpi Endo/Heme/Allergies: Positive for polydipsia. Objective PHYSICAL EXAM: VITALS: BP 122/66 (BP Location: Left arm, Patient Position: Sitting) | Pulse 76 | Temp 98.1 F(36.7 C) (Tympanic) | Ht 5' 5" (1.651 m) | Wt 365 lb (165.6 kg) | LMP 06/08/2016 (Approximate) | SpO2 98% | BMI 60.74 kg/m Body mass index is 60.74 kg/m. Physical Exam Vitals signs and nursing note reviewed. Constitutional: General: She is not in acute distress. Appearance: She is obese. She is not ill-appearing. Chest: Breasts: Right: Mass and tenderness present. No swelling, bleeding, inverted nipple , nipple discharge or skin change. Left: No swelling, bleeding, inverted nipple, mass, nipple discharge, skin change or tenderness. Neurological: General: No focal deficit present. Mental Status: She is alert. Psychiatric: Mood and Affect: Mood normal. Behavior: Behavior normal. Behavior is cooperative. Thought Content: Thought content normal. Judgment: Judgment normal. ASSESSMENT / IMPRESSION: ICD-9-CM ICD-10-CM 1. Abscess of right breast 611.0 N61.1 REFER TO GENERAL SURGERY CBC NO DIFFERENTIAL CANCELED: REFER TO BREAST CARE 2. Polydipsia 783.5 R63.1 URINE DIP MANUAL (AMB POCT) ACCU-CHECK GLUCOSE (AMB POCT) GLYCOHEMOGLOBIN A1C BASIC METABOLIC PANEL Plan 1. Abscess of right breast Will send to Dr. Mercer or Dr. Shell for possible I&D. - REFER TO GENERAL SURGERY; Future - CBC NO DIFFERENTIAL; Future 2. Polydipsia Fasting this am - only water - FS 147. poct a1c not available - will do labs. - URINE DIP MANUAL (AMB POCT) - ACCU-CHECK GLUCOSE (AMB POCT) - GLYCOHEMOGLOBIN A1C; Future - BASIC METABOLIC PANEL; Future Author: Marva Peck NP 06/19/2019 09:14 documented in this encounter Plan of Treatment Date Type Specialty Care Team Description 07/09/2019 Office Visit Bariatrics Heather Santana MD [address] [place] [address] Name Type Priority Associated Diagnoses Order Schedule URINE DIP MANUAL (AMB POCT) POCT Routine Polydipsia Ordered: 06/19/2019 ACCU-CHECK GLUCOSE (AMB POCT Routine Polydipsia Ordered: 06/19/2019 POCT) GLYCOHEMOGLOBIN A1C Lab Routine Polydipsia Expected: 06/19/2019 (Approximate), Expires: 06/19/2020 BASIC METABOLIC PANEL Lab Routine Polydipsia Expected: 06/19/2019 (Approximate), Expires: 06/19/2020 CBC NO DIFFERENTIAL Lab Routine Abscess of right breast Expected: 2019 (Approximate), Expires: 06/19/2020 Name Type Priority Associated Diagnoses Order Schedule REFER TO GENERAL Referral Routine Abscess of right breast Expected: 2019, SURGERY Expires: 06/19/2020 Health Maintenance Due Date Last Done Comments MEDICARE ANNUAL WELLNESS 1985 VISIT PNEUMOCOCCAL 0-64 YRS (1 of 1993 1 - PPSV23) DTaP/Tdap/Td Vaccines (1 - 1998 Tdap) PAP SMEAR 06/29/2019 06/29/2016, 06/29/2016, 06/29/2016 DIABETES SCREENING 02/04/2020 02/03/2019, 12/09/2018, 07/10/2018, Additional history exists DEPRESSION SCREENING 03/11/2020 03/11/2019 HEPATITIS A IMMUNIZATION Aged Out No longer eligible SERIES based on patient's age to complete this topic HPV IMMUNIZATION SERIES Aged Out No longer eligible based on patient's age to complete this topic MENINGOCOCCAL VACCINE IMM Aged Out No longer eligible based on patient's age to complete this topic documented as of this encounter Results Not on filedocumented in this encounter Visit Diagnoses Diagnosis Abscess of right breast Inflammatory disease of breast Polydipsia documented in this encounter Insurance Payer Benefit Plan / Subscriber ID Effective Dates Phone Address Type Group [place] [id number] 2016-Present [place] Guarantor Name Account Type Relation to Date of Phone Billing Address Patient Zuleika Choudhury Personal/Famil [address] (Home) [place], [place] [phone] (Work) documented as of this encounter
--- OUTSIDE RECORDS SUMMARY | 2019-07-08 03:57 | XMS REPORT | Continuity of Care Document ---
:1985 External Reference #:[id number] Author Name Cori Rendon M.D. (transmitted by agent of provider Maye Boyce) Address [address] [place] [address] Care Team Providers Name Role Phone Chantell Tena MD - Internal Care Team Information Rn Operating Room [phone] Medicine Holger Johnson D.O. - Family Medicine Care Team Information Rn Operating Room Problems Active Problems Provider Date Morbid obesity Kiya Salcedo M.D. Onset: 07/02/2014 Alcoholism Kiya Salcedo M.D. Onset: 07/02/2014 Gastritis Kiya Salcedo M.D. Onset: 07/02/2014 Light cigarette smoker (1-9 cigs/day) Kiya Salcedo M.D. Onset: 07/28/2014 Social History Type Date Description Comments Sex Unknown Tobacco Use Start: Unknown current cigarette Smokes 2-3 per day and smoker has been smoking since age 20 Smoking Status Reviewed: 06/18/19 current cigarette Smokes 2-3 per day and [...] Medications SIG Qnty Indications Ordering Provider Date Wrist Splint use nightly to 2units R20.8 Mehdi Caro, 04/18/2019 [facility] [place] help with carpal M.D. tunnel features g56.01 right Three-Panel Binder Use nightly as a R06.00 Mehdi Caro, 12/20/2018 For [facility]/2-Xlarge support for M.D. Bind abdomen and back 2XL Misc Omeprazole 1 by mouth every Unknown 20mg day Capsules Gabapentin 1 by mouth every Unknown 300mg morning Capsules Loratadine 1 by mouth every Unknown 10mg Tablets day History Medications Cymbalta 1 by mouth every 30caps Mehdi Caro, 04/18/2019 - 30mg Caps day for 1 week M.D. 06/17/2019 DR Adrienne peacock 2 daily ongoing Immunizations Description No Information Available Vital Signs Date Vital Result Comment 06/18/2019 1:08pm Height 65 inches 5'5" Weight 364.25 lb Heart Rate 75 /min BP Systolic 142 mmHg BP Diastolic 84 mmHg Respiratory Rate 18 /min Pain Level 8 O2 % BldC Oximetry 99 % BMI (Body Mass Index) 60.6 kg/m2 04/18/2019 11:15am Height 65 inches 5'5" Weight 360.00 lb Heart Rate 85 /min BP Systolic Sitting 124 mmHg LT arm (manual) BP Diastolic Sitting 84 mmHg LT arm (manual) Respiratory Rate 18 /min Body Temperature 97.6 F Pain Level 8 O2 % BldC Oximetry 99 % BMI (Body Mass Index) 59.9 kg/m2 Results Description No Information Available Procedures Date Code Description Status 05/27/2019 35559 Nerve Conduction 07-08 Studies Completed 05/27/2019 17456 Needle Electromyography Complete, Five Or More Muscles Completed Studied 05/27/2019 09866 Needle Electromyography Each Extremity W/Related Completed Paraspinal Areas Medical Devices Description No Information Available Encounters Type Date Location Provider Dx Diagnosis Office Visit 04/18/2019 [facility] Mehdi Caro M79.7 Fibromyalgia 10:40a Of Dhaval Marmolejo M51.36 Other intervertebral disc degeneration, lumbar region R53.83 Other fatigue R20.8 Other disturbances of skin sensation Office Visit 12/20/2018 10:00a Rheumatology Mehdi M60.9 Myositis, Services Of Dhaval Caro M.D. unspecified R06.00 Dyspnea, unspecified R20.8 Other disturbances of skin sensation M54.5 Low back pain M54.2 Cervicalgia K76.0 Fatty (change of) liver, not elsewhere classified F17.210 Nicotine dependence, cigarettes, uncomplicated Assessments Date Code Description Provider 06/18/2019 G56.01 Carpal tunnel syndrome, right upper limb Cori Rendon M.D. 05/27/2019 G56.23 Lesion of ulnar nerve, bilateral upper Leonel Montgomery MD limbs 04/18/2019 M79.7 Fibromyalgia Mehdi Caro M.D. 04/18/2019 M51.36 Other intervertebral disc degeneration, Mehdi Caro M.D. lumbar region 04/18/2019 R53.83 Other fatigue Mehdi Caro M.D. 04/18/2019 R20.8 Other disturbances of skin sensation Mehdi Caro M.D. 12/20/2018 M60.9 Myositis, unspecified Mehdi Caro M.D. 12/20/2018 R06.00 Dyspnea, unspecified Mehdi Caro M.D. 12/20/2018 R20.8 Other disturbances of skin sensation Mehdi Caro M.D. 12/20/2018 M54.5 Low back pain Mehdi Caro M.D. 12/20/2018 M54.2 Cervicalgia Mehdi Caro M.D. 12/20/2018 K76.0 Fatty (change of) liver, not elsewhere Mehdi Caro M.D. classified 12/20/2018 F17.210 Nicotine dependence, cigarettes, Mehdi Caro M.D. uncomplicated Plan of Treatment Future Appointment(s):07/22/2019 9:40 am - Mehdi [facility] M.D. at [facility]/18/2019 - Cori Rendon M.D.G56.01 Carpal tunnel syndrome , right upper limbFollow up:Follow up: preop Functional Status Description No Information Available Mental Status Description No Information Available Referrals Refer to Reason for Referral Status Appt Date Cori Rendon M.D. Please evaluate patient with chronic Sent denervation from carpal tunnel syndrome [address] [place] [id number] [phone]
--- OUTSIDE RECORDS SUMMARY | 2019-07-08 03:57 | XMS REPORT | Summary of Care ---
:1985 Author Organization [facility] Address [address] [address] Care Team Providers Name Role Phone Marva Peck Primary Care Provider Reason for Visit Reason Comments Check Up lamp/mass under R breast, very painful x1 week has grown since she noticed it Encounter Details Date Type Department Care Team Description 05/29/2019 Office Visit [facility] Marva Peck, Abscess of right Practice [facility] (Primary Dx) [address] [place] [address] [phone] Allergies Active Allergy Reactions Severity Noted Date Comments Nsaids GI Reaction 01/15/2018 documented as of this encounter (statuses as of 05/29/2019) Medications Medication Sig Dispensed Refills Start Date End Date Status mometasone (NASONEX) 50 [place] 1 [place] in 1 Bottle 0 12/09/2018 Active MCG/ACT Nasal nose EVERY TWELVE SuspensionIndications: HOURS. 2 sprays ETD (Eustachian tube in each nostril dysfunction), right once daily pantoprazole (PROTONIX) Take 1 Tab by 90 Tab 0 02/24/2019 Active 40 MG Oral Tab mouth BEFORE ECIndications: BREAKFAST. Abdominal pain, unspecified abdominal location metroNIDAZOLE (FLAGYL) Take 500 mg by 0 Active 500 MG Oral Tab mouth THREE TIMES DAILY. gabapentin (NEURONTIN) Take 1 Cap by 90 Cap 3 05/19/2019 Active 300 MG Oral Cap mouth THREE TIMES DAILY. loratadine Take 1 Tab by 30 Tab 11 05/19/2019 Active (CLARITIN,ALAVERT) 10 mouth DAILY. MG Oral Tab doxycycline Take 100 mg by 20 Tab 0 05/29/2019 Active (VIBRAMYCIN) 100 MG mouth TWICE Oral TabIndications: DAILY. Abscess of right breast documented as of this encounter (statuses as of 05/29/2019) Active Problems Problem Noted Date Morbidly obese 01/02/2019 NAFL (nonalcoholic fatty liver) 01/15/2018 Class 3 obesity with body mass index (BMI) of 50.0 to 59.9 in adult 09/12/2017 Family history of alcoholism 09/12/2017 Alcohol abuse 09/12/2017 documented as of this encounter (statuses as of 05/29/2019) Social History Tobacco Use Types Packs/Day Years [...] Sign Reading Time Taken Comments Blood Pressure 124/68 05/29/2019 3:16 PM EST Pulse 85 05/29/2019 3:16 PM EST Temperature 36.4 05/29/2019 3:16 PM EST C (97.5 F) Respiratory Rate - - Oxygen Saturation 97% 05/29/2019 3:16 PM EST Inhaled Oxygen Concentration - - Weight 161.9 kg (357 lb) 05/29/2019 3:16 PM EST Height 165.1 cm (5' 5") 05/29/2019 3:16 PM EST Body Mass Index 59.41 05/29/2019 3:16 PM EST documented in this encounter Patient Instructions Patient InstructionsMarva Peck NP - 05/29/2019 3:00 PM ESTYou have been prescribed doxycycline - take one tablet twice daily for 10 days. ? This drug will make you more susceptible to sunburn - be sure to wear sunscreen when exposed to the sun or outside. ? Take with food. Don't take with milk. Use warm soaks to the area to help bring the abscess to a head - do not squeeze it or try to pop it until it starts to drain on it's own. If no improvement in the next week, or if worsening, please return for re- evaluation. You have been prescribed an antibiotic for treatment of your condition. It is important to rememberthat antibiotics treat bacterial infections. In order for them to be effective - you must take ALL of the medication and take it exactly as prescribed. FINISH THE MEDICATION - even if you are feelingbetter. Antibiotics can cause stomach upset and diarrhea. You can help decrease these symptoms by also taking a probiotic while using the medication (Align, Culturelle or the like). Take with food if recommended by the pharmacist. Patient Education Cellulitis and Erysipelas (Skin Infections) The Basics Written by the doctors and editors at [facility] What are cellulitis and erysipelas?Cellulitis and erysipelas are both infections of the skin. These infections can cause redness, pain, and swelling. The difference between them is that erysipelas tends to affect the upper layers of skin, and cellulitis tends to affect deep layers of skin and sometimes the fat under the skin. Cellulitis and erysipelas can happen when germs get into the skin. Normally, different types of germs live on a person's skin. Most of the time, these germs do not cause any problems. But if a person gets a cut or a break in the skin, the germs can get into the skin and cause an infection. Certain conditions can increase a person's chance of getting cellulitis or erysipelas. These include: Having a cut (even a tiny one) Having another type of skin infection or a long-term skin condition Having swelling of the skin or swelling in the body Being overweight What are the symptoms of cellulitis and erysipelas?Both types of infection cause very similar symptoms. Either infection can cause the infected area to be painful, red, swollen, or warm. Some people with cellulitis or erysipelas can sometimes also have fever or chills. And sometimes, people with these infections have no symptoms or only some of these symptoms. Most of the time, cellulitis and erysipelas happen on the legs or arms. But people can get these infections in other places, such as the belly, the face, in the mouth, or around the anus. Will I need tests?Most people do not need any tests. Your doctor or nurse will do an exam and look at your skin. It's important for a doctor or nurse to do an exam to figure out what kind of infection you have. The right treatment for a skin infection depends on the type of infection it is and which germs are causing it. Your doctor or nurse might need to do tests to figure out the cause of your infection. If you have cellulitis or erysipelas, it's important to get treated. These infections can spread to the whole body and become serious if not treated. How are cellulitis and erysipelas treated?These infections are treated with antibioticpills. If your doctor prescribes medicine for you to take at home, it is important to follow the directions exactly. Take all of the pills you are given, even if you feel better before you finish them.If you do not take all the pills, the infection can come back worse. People who have severe infections might be treated in the hospital and given antibiotics through a thin tube that goes into the vein, called an "IV". What can I do to help treat my infection?You can: Raise your arm or leg (if your infection is on your arm or leg) to reduce swelling Raisethe arm or leg up above the level of your heart 3 or 4 times a day, for 30 minutes each time. Keep the infected area clean and dry You can take a shower or bath, but be sure to pat the area dry with a towel afterward. Do not put any antibiotic ointments or creams on the area. Should I call my doctor or nurse?You should call your doctor or nurse if your symptomsdo not get better within 3 days of starting treatment. You should also call if the red area gets: Bigger More swollen More painful Your doctor or nurse might do another exam or tests to see if you need different medicines. Can skin infections be prevented?Sometimes. If you cut your skin, make sure to wash the area well with soap and water. This can help prevent the area from getting infected. If you have a long-term skin condition, ask your doctor or nurse what you can do to help prevent infections. All topics are updated as new evidence becomes available and our peer review process is complete. This topic retrieved from [employer] on: Mar 11, 2019. Topic 00515 Version 7.0 Release: 27.4.5 - C27.318 [employer] and/or its affiliates.All rights reserved. Consumer Information Use and Disclaimer This information is not specific medical advice and does not replace information you receive from your health care provider. This is only a brief summary of general information. It does NOT include allinformation about conditions, illnesses, injuries, tests, procedures, treatments, therapies, discharge instructions or life-style choices that may apply to you. You must talk with your health care provider for complete information about your health and treatment options. This information should not beused to decide whether or not to accept your health care provider's advice, instructions or recommendations. Only your health care provider has the knowledge and training to provide advice that is right for you.The use of [employer] content is governed by the [employer] Terms of Use. 2019 [employer]. All rights reserved. Copyright 2019[employer]. and/or its affiliates.All rights reserved. documented in this encounter Progress Notes Marva Peck NP - 05/29/2019 3:00 PM EST PATIENT: Zuleika Choudhury : 1985 DATE OF SERVICE: 05/29/2019 CHIEF COMPLAINT: Chief Complaint Patient presents with Check Up lamp/mass under R breast, very painful x1 week has grown since she noticed it Subjective HISTORY OF PRESENT ILLNESS: Zuleika Choudhury is a 34-y.o. female. HPI Noticed a lump under right breast a week ago, has been growing in size over that time, and is painful. No discharge from the area. Has to sleep in certain positions to try to relieve the pain. Ittching in the area as well. When she lays down it "sticks out" more. Never had anything like this in the past. No fevers but feels tired all the time. Wearing a bra irritates. Does not wear underwire bra. No family history of breast cancer. Past Medical History: Diagnosis Date Acid reflux Arthritis Family History Problem Relation Age of Onset No Known Problems Mother No Known Problems Father No Known Problems Sister Current Outpatient Medications Medication Sig doxycycline (VIBRAMYCIN) 100 MG Oral Tab Take 100 mg by mouth TWICE DAILY. gabapentin (NEURONTIN) 300 MG Oral Cap Take 1 Cap by mouth THREE TIMES DAILY. loratadine (CLARITIN,ALAVERT) 10 MG Oral Tab Take 1 Tab by mouth DAILY. metroNIDAZOLE (FLAGYL) 500 MG Oral Tab Take 500 mg by mouth THREE TIMES DAILY. mometasone (NASONEX) 50 MCG/ACT Nasal Suspension [place] 1 [place] in nose EVERY TWELVE HOURS. 2 sprays [...] Financial resource strain: Not on file Food insecurity Worry: Not on file Inability: Not on file Transportation needs Medical: Not on file Non-medical: Not on file Tobacco Use Smoking status: Heavy Tobacco Smoker Packs/day: 1.00 Years: 5.00 Pack years: 5.00 Smokeless tobacco: Never Used Tobacco comment: willing to quit Substance and Sexual Activity Alcohol use: Yes Alcohol/week: 2.0 standard drinks Types: 1 Cans of beer, 1 Glasses of wine per week Comment: occasional Drug use: No Sexual activity: Never Lifestyle Physical activity Days per week: Not on file Minutes per session: Not on file Stress: Not on file Relationships Social connections Talks on phone: Not on file Gets together: Not on file Attends quaker service: Not on file Active member of club or organization: Not on file Attends meetings of clubs or organizations: Not on file Relationship status: Not on file Intimate partner violence Fear of current or [...] REVIEW OF SYSTEMS: Review of Systems Constitutional: Positive for malaise/fatigue. Negative for chills and fever. Skin: See hpi Neurological: Negative for tingling and sensory change. Objective PHYSICAL EXAM: VITALS: BP 124/68 (BP Location: Left arm, Patient Position: Sitting) | Pulse 85 | Temp 97.5 F(36.4 C) (Tympanic) | Ht 5' 5" (1.651 m) | Wt 357 lb (161.9 kg) | LMP 06/08/2016 (Approximate) | SpO2 97% | BMI 59.41 kg/m Body mass index is 59.41 kg/m. Physical Exam Vitals signs and nursing note reviewed. Constitutional: Appearance: Normal appearance. She is obese. She is not ill-appearing. Chest: Chest wall: Mass, swelling and tenderness present. No lacerations, deformity , crepitus or edema. Breasts: Breasts are symmetrical. Right: Tenderness present. No swelling, bleeding, inverted nipple, nipple discharge or skin change. Left: No swelling, bleeding, inverted nipple, mass, nipple discharge, skin change or tenderness. Skin: General: Skin is warm and dry. Psychiatric: Mood and Affect: Mood normal. Behavior: Behavior normal. Thought Content: Thought content normal. Judgment: Judgment normal. ASSESSMENT / IMPRESSION: ICD-9-CM ICD-10-CM 1. Abscess of right breast 611.0 N61.1 doxycycline (VIBRAMYCIN) 100 MG Oral Tab CANCELED: US ABDOMEN LIMITED Plan 1. Abscess of right breast Doxycycline x10 days and warm compresses. Return in one week if no improvement - consider for Dr. Shell to I&d. - doxycycline (VIBRAMYCIN) 100 MG Oral Tab; Take 100 mg by mouth TWICE DAILY. Dispense: 20 Tab; Refill: 0 Author: Marva Peck NP 05/29/2019 16:37 documented in this encounter Plan of Treatment Date Type Specialty Care Team Description 06/04/2019 Office Visit Bariatrics Heather Santana MD [address] [place] [id number] Health Maintenance Due Date Last Done Comments MEDICARE ANNUAL WELLNESS VISIT 1985 PNEUMOCOCCAL 0-64 YRS (1 of 1 1993 - PPSV23) DTaP/Tdap/Td Vaccines (1 - 1998 Tdap) PAP SMEAR 06/29/2019 06/29/2016, 06/29/2016, 06/29/2016 DEPRESSION SCREENING 03/11/2020 03/11/2019 HEPATITIS A IMMUNIZATION Aged Out No longer eligible based SERIES on patient's age to complete this topic HPV IMMUNIZATION SERIES Aged Out No longer eligible based on patient's age to complete this topic MENINGOCOCCAL VACCINE IMM Aged Out No longer eligible based on patient's age to complete this topic documented as of this encounter Results Not on filedocumented in this encounter Visit Diagnoses Diagnosis Abscess of right breast Inflammatory disease of breast documented in this encounter Insurance Payer Benefit Plan / Subscriber ID Effective Dates Phone Address Type Group [place] xxxxxxxx 2016-Present [place] Guarantor Name Account Type Relation to Date of Phone Billing Address Patient MaceyZuleika feliz Personal/Famil 1985 [address] (Home) [place], [place] [phone] [id number] (Work) documented as of this encounter
--- OUTSIDE RECORDS SUMMARY | 2019-07-08 03:57 | XMS REPORT | Summary of Care ---
:1985 Author Organization [facility] Address [address] [facility] [place] [address] Care Team Providers Name Role Phone Liv Marva Primary Care Provider Reason for Visit Reason Comments New Patient Has breast abscessin her Right breast that she has had for about 2 months is not draining but painful Encounter Details Date Type Department Care Team Description 06/23/2019 Office Visit [facility] Yolanda Albert Cyst of skin of right Surgery MD Zacarias breast (Primary Dx) [address] [facility] [address] [place] [address] [place] [address] Allergies Active Allergy Reactions Severity Noted Date Comments Nsaids GI Reaction 01/15/2018 documented as of this encounter (statuses as of 06/23/2019) Medications Medication Sig Dispensed Refills Start Date End Date Status mometasone (NASONEX) 50 [place] 1 [place] in 1 Bottle 0 12/09/2018 Active MCG/ACT [...] as of this encounter (statuses as of 06/23/2019) Active Problems Problem Noted Date Cyst of skin of right breast 06/23/2019 Overview: Added automatically from request for surgery [id number] Morbidly obese 01/02/2019 NAFL (nonalcoholic fatty liver) 01/15/2018 Class 3 obesity with body mass index (BMI) of 50.0 to 59.9 in adult 09/12/2017 Family history of alcoholism 09/12/2017 Alcohol abuse 09/12/2017 documented as of this encounter (statuses as of 06/23/2019) Social History Tobacco Use Types Packs/Day Years Used Date Heavy Tobacco Smoker 1 5 Smokeless Tobacco: Never Used Comments: willing to quit / has cut back Alcohol Use Drinks/Week oz/Week Comments Yes 1 Glasses of wine 2.0 occasional 1 Cans of beer Sex Assigned at Date Recorded Not on file documented as of this encounter Last Filed Vital Signs Vital Sign Reading Time Taken Comments Blood Pressure 122/57 06/23/2019 9:33 AM EST Pulse 80 06/23/2019 9:33 AM EST Temperature - - Respiratory Rate - - Oxygen Saturation 98% 06/23/2019 9:33 AM EST Inhaled Oxygen Concentration - - Weight 165.1 kg (364 lb) 06/23/2019 9:33 AM EST Height 165.1 cm (5' 5") 06/23/2019 9:33 AM EST Body Mass Index 60.57 06/23/2019 9:33 AM EST documented in this encounter Progress Notes Yolanda Albert MD - 06/23/2019 10:00 AM EST PATIENT: Zuleika Choudhury : 1985 DATE OF SERVICE: 06/23/2019 PRIMARY CARE PROVIDER: Marva Peck CHIEF COMPLAINT: Chief Complaint Patient presents with ? New Patient Has breast abscessin her Right breast that she has had for about 2 months is not draining but painful HISTORY OF PRESENT ILLNESS: Zuleika Choudhury is a 34-y.o. female who presents for evaluation of a painful, tender lump in her lower inner right breast skin. She has been treated with antibiotics for an apparent infected skin cyst versus abscess at this location. She says the swelling in the lump has decreased as she has taken antibiotics. She is completing a course of doxycycline. She has large breasts and has neck and back pain associated with the weight of her breasts. She hasbeen thinking about consulting a plastic surgeon regarding breast reduction. She has also been evaluated in the weight loss center and has been trying to lose weight. Her back pain may also be related to her obesity. Gynecologic history: OB History Para Term AB Living 0 0 0 0 0 0 SAB TAB Ectopic Multiple 0 0 0 0 Obstetric Comments Menarche @ 14 Surgical menopause at 31, fibroids, MARISSA/BSO No HRT [place] Family history: Family History Problem Relation Age of Onset ? No Known Problems Mother ? No Known Problems Father ? No Known Problems Sister Past Medical History: Diagnosis Date ? Acid reflux ? Arthritis Past Surgical History: Procedure Laterality Date ? MS TOTAL ABDOM HYSTERECTOMY Current Outpatient Medications Medication Sig ? doxycycline (VIBRAMYCIN) 100 MG Oral Tab Take 100 mg by mouth TWICE DAILY. ? gabapentin (NEURONTIN) 300 MG Oral Cap Take 1 Cap by mouth THREE TIMES DAILY. ? loratadine (CLARITIN,ALAVERT) 10 MG Oral Tab Take 1 Tab by mouth DAILY. ? mometasone (NASONEX) 50 MCG/ACT Nasal Suspension [place] 1 [place] in nose EVERY TWELVE HOURS. 2sprays in each nostril once daily ? pantoprazole (PROTONIX) 40 MG Oral Tab EC Take 1 Tab by mouth BEFORE BREAKFAST. No current facility-administered medications for this visit. Allergies Allergen Reactions ? Nsaids GI Reaction Social History Tobacco Use ? Smoking status: Heavy Tobacco Smoker Packs/day: 1.00 Years: 5.00 Pack years: 5.00 ? Smokeless tobacco: Never Used ? Tobacco comment: willing to quit / has cut back Substance Use Topics ? Alcohol use: Yes Alcohol/week: 2.0 standard drinks Types: 1 Glasses of wine, 1 Cans of beer per week Comment: occasional ? 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 GENERAL: alert, no distress LUNGS: Nonlabored respirations. BREASTS: Comprehensive breast examination was done with the patient in the sitting and recumbent positions with her arms elevated and at her sides. Breasts are large and pendulous and symmetric in size. Right nipple is everted Left nipple is everted. Nipple rash or crusting: None Nipple discharge: None Breast masses: There is a 1.5 cm dermal/subcutaneous mass with overlying mild induration and tenderness in her lower inner right breast near her right sternal border. There is no erythema or drainage. Palpable axillary, lymph nodes: None Palpable supraclavicular or cervical lymph nodes: None Impression: Zuleika Choudhury has clinical findings consistent with a sebaceous cyst or inclusion cyst in her medial right breast skin. She has had symptoms of infection or inflammation of the cyst over the past 2months. Plan: I discussed with Ms. Choudhury the options of ongoing observation and treatment of infection with antibiotics, if necessary, versus excision of the palpable lesion in her medial right breast skin for definitive diagnosis and prevention of symptoms. She is opting for excision of the palpable skin lesion. I counseled Ms. Choudhury regarding potential complications of excisional biopsy of her medial right breast skin lesion. These potential complications include bleeding, infection, scar, chronic pain, and the potential cardiopulmonary complications of anesthesia?such as myocardial infarction, respiratory failure, and stroke. This operation would likely be feasible under sedation and local anesthesia. Ms. Choudhury expressed understanding of the potential benefits and risks of surgery, and she signed consent for excisional biopsy of her right breast skin lesion. We have scheduled this operation on 07/23/2019. I spent a total of 30 minutes with Ms. Choudhury, over 75% of which was spent in counseling/coordination of care. All of her questions were answered to her satisfaction. Author: Yolanda Albert MD 06/23/2019 20:23 cc: Marva Peck documented in this encounter Plan of Treatment Date Type Specialty Care Team Description 07/09/2019 Office Visit Bariatrics Heather Santana MD [address] [place] [address] 07/23/2019 [facility], Short Procedure Yolanda Adames MD [address] [place] [address] 07/23/2019 Surgery [facility], excision skin cyst Yolanda Adames, of right breast 1 [place] [address] [phone] Name Type Priority Associated Diagnoses Order Schedule CASE REQUEST OPERATING Procedures Routine Cyst of skin of right Ordered: ROOM breast Health Maintenance Due Date Last Done Comments MEDICARE ANNUAL WELLNESS 1985 VISIT PNEUMOCOCCAL 0-64 YRS (1 of 1993 1 - PPSV23) DTaP/Tdap/Td Vaccines (1 - 1998 Tdap) PAP SMEAR 06/29/2019 06/29/2016, 06/29/2016, 06/29/2016 DEPRESSION SCREENING 03/11/2020 03/11/2019 DIABETES SCREENING 06/19/2020 06/19/2019, 06/19/2019, 02/03/2019, Additional history exists HEPATITIS A IMMUNIZATION Aged Out No longer [...] filedocumented in this encounter Visit Diagnoses Diagnosis Cyst of skin of right breast Diagnosis Cyst of skin of right breast Diagnosis Cyst of skin of right breast documented in this encounter Insurance Payer Benefit Plan / Subscriber ID Effective Dates Phone Address Type Group [place] [id number] 2016-Present Medicaid [place] Guarantor Name Account Type Relation to Date of Phone Billing Address Patient RooseveltZuleika feliz Personal/Famil 1985 [address] [facility] (Home) [place], [place] [phone] (Work) documented as of this encounter
--- OUTSIDE RECORDS SUMMARY | 2019-07-08 03:57 | XMS REPORT | Summary of Care ---
:1985 Author Organization [facility] Address [address] [place] [address] Care Team Providers Name Role Phone LatrelljamarcusMarva Primary Care Provider Reason for Visit Reason Comments Follow Up Encounter Details Date Type Department Care Team Description 06/11/2019 Office Visit Heather Jackson, Morbidly obese (HCC) (Primary Dx); Bariatrics - Rosa BUSCH Prediabetes; [address] [place] [address] Gastroesophageal reflux disease, esophagitis presence not specified; [facility] Chronic midline low back pain without sciatica [place] [address] [place] [phone] [address] [phone] Allergies Active Allergy Reactions Severity Noted Date Comments Nsaids GI Reaction 01/15/2018 documented as of this encounter (statuses as of 06/11/2019) Medications Medication Sig Dispensed Refills Start Date End Date Status mometasone (NASONEX) 50 [place] 1 [place] in 1 Bottle 0 12/09/2018 Active MCG/ACT [...] as of this encounter (statuses as of 06/11/2019) Active Problems Problem Noted Date Morbidly obese 01/02/2019 NAFL (nonalcoholic fatty liver) 01/15/2018 Class 3 obesity with body mass index (BMI) of 50.0 to 59.9 in adult 09/12/2017 Family history of alcoholism 09/12/2017 Alcohol abuse 09/12/2017 documented as of this encounter (statuses as of 06/11/2019) Social History Tobacco Use Types Packs/Day Years [...] Sign Reading Time Taken Comments Blood Pressure 110/62 06/11/2019 10:50 AM EST Pulse 73 06/11/2019 10:50 AM EST Temperature - - Respiratory Rate - - Oxygen Saturation 98% 06/11/2019 10:50 AM EST Inhaled Oxygen Concentration - - Weight 161.5 kg (356 lb) 06/11/2019 10:50 AM EST Height 165.1 cm (5' 5") 06/11/2019 10:50 AM EST Body Mass Index 59.24 06/11/2019 10:50 AM EST documented in this encounter Patient Instructions Patient InstructionsHeather Santana MD - 06/11/2019 10:40 AM ESTProtein- meats, milk, eggs, fish , yogurt and cheese Try to eat more protein in the diet Try not to skip your meals Write down the foods that you are eating Start walking for about 10-15mts/day 2-3 times/wk Follow up in 4wks documented in this encounter Progress Notes Heather Santana MD - 06/11/2019 10:40 AM EST PATIENT: Zuleika Choudhury : 1985 DATE OF SERVICE: 06/11/2019 REFERRING PRACTITIONER: Other PRIMARY CARE PROVIDER: Marva Peck Chief Complaint Patient presents with Follow Up HISTORY OF PRESENT ILLNESS: Zuleika Choudhury is a 34-y.o. female who presents for follow up treatment of obesity and related diseases. She is in the surgical program but has not been seen since 01/2019 She reports no new medical issues in the interim. She was not prescribed any new medications at the last visit. Her dietary compliance as reported is inadequate. The patient is generally skipping meals. She is not generally keeping a consistent food journal. She is eating about unknown calories per day. Sheis not generally getting adequate protein. States that a lot of foods cause her heartburn The patient reports no regular exercise. 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 Multiple in her family had bariatric surgery and most gained back surgery and still have medical problems Past Medical History: Diagnosis Date Acid reflux Arthritis Past Surgical History: Procedure Laterality Date MD TOTAL ABDOM HYSTERECTOMY Family History Problem Relation [...] Glasses of wine per week Comment: occasional Current Outpatient Medications Medication Sig doxycycline (VIBRAMYCIN) [...] DAILY. mometasone (NASONEX) 50 MCG/ACT Nasal Suspension [place] 1 [place] in nose EVERY TWELVE HOURS. 2 sprays in each nostril once daily pantoprazole (PROTONIX) 40 MG Oral Tab EC Take 1 Tab by mouth BEFORE BREAKFAST. No current facility-administered medications for this visit. Allergies Allergen Reactions Nsaids GI Reaction REVIEW OF SYSTEMS: CONSTITUTIONAL: Negative RESPIRATORY: Negative CARDIOVASCULAR: Negative GASTROINTESTINAL: Negative. GENITOURINARY:Negative MUSCULOSKELETAL: Negative NEUROLOGICAL: Negative. PSYCH: Negative. There are no exam notes on file for this visit. PHYSICAL EXAMINATION: VITALS: BP 110/62 (BP Location: Right arm, Patient Position: Sitting) | Pulse 73 | Ht 5' 5" (1.651 m) | Wt 356 lb (161.5 kg) | LMP 06/08/2016 (Approximate ) | SpO2 98% | BMI 59.24 kg/m BODY COMPOSITION AND MEASUREMENTS: BODY COMPOSITION HISTORY Body Composition 03/26/2019 05/29/2019 06/11/2019 Weight 356 lb 12.8 oz 357 lb 356 lb LEAN BODY MASS (lbs) 160.1 - 158.7 BODY FAT MASS (lbs) 196.7 - 197.3 BMI (Calculated) 59.37 59.41 59.24 Body Fat % 55.2 - 55.4 BASAL METABOLIC RATE (kcal) 05532 - 1924 EXCESS BODY FAT (lbs) 149 - 149.9 VISCERAL FAT AREA (cm2) 282.4 - 289.1 LEAN BODY MASS DEFICIT (lbs) 0 - 0 NECK CIRCUMFERENCE (in) - - - WAIST CIRCUMFERENCE (in) - - - HIP CIRCUMFERENCE (in) - - - GENERAL: No acute distress; super morbidly obese PULMONARY: Clear to auscultation bilaterally CARDIOVASCULAR: Regular rate and rhythm; no murmurs, no rubs, no gallops ABDOMEN: Soft, non tender, no organomegaly, no masses appreciated. truncal adiposity present MUSCULOSKELETAL: no clubbing, cyanosis or edema NEUROLOGICAL: Alert and oriented x 3 PSYCH: Appropriate mood and affect LABORATORY STUDIES: [...] IMPRESSION: ICD-9-CM ICD-10-CM 1. Morbidly obese (HCC) Gained weight. Didn't seem like she understood the basic food concepts so not sure how she will be able to follow through with surgery -she also does not have any idea of why she is on ABX and what she is taking 278.01 E66.01 2. Prediabetes Will imropve with diet and exercise 790.29 R73.03 3. Gastroesophageal reflux disease, esophagitis presence not specified Will improve with weight loss 530.81 K21.9 4. Chronic midline low back pain without sciatica Due to fat mass affect, will improve with weight loss 724.2 M54.5 338.29 G89.29 PLAN: Zuleika Choudhury is a 34-y.o. year-old female with Body mass index is 59.24 kg/ m.. Obesity Class III Weight is decreased 0.8 lbs in the interim; this reflects a(n) decrease in lean body mass of 1.4 lbs(1.4 lbs of which was total body water) and increase in fat mass of 0.6 lbs Continue with 1400 calories per day; 30 g protein per meal; 30 g carbs per meal Moderate intensity exercise for 30 minutes, at least 5 days per week Patient Instructions Protein- meats, milk, eggs, fish , yogurt and cheese Try to eat more protein in the diet Try not to skip your meals Write down the foods that you are eating Start walking for about 10-15mts/day 2-3 times/wk Follow up in 4wks Author: Heather Santana MD 06/11/2019 12:46 documented in this encounter Plan of Treatment Date Type Specialty Care Team Description 07/09/2019 Office Visit Bariatrics Heather Santana MD [address] [place] [address] Health Maintenance Due Date Last Done [...] filedocumented in this encounter Visit Diagnoses Diagnosis Morbidly obese (HCC) Morbid obesity Prediabetes Other abnormal glucose Gastroesophageal reflux disease, esophagitis presence not specified Chronic midline low back pain without sciatica documented in this encounter Insurance Payer Benefit Plan / Subscriber ID Effective Dates Phone Address Type Group [place] xxxxxxxx 2016-Present [place] Guarantor Name Account Type Relation to Date of Phone Billing Address Patient MaceyFelipesandra Personal/Famil 1985 [address] [facility] (Home) [place], [place] [phone] (Work) documented as of this encounter
--- NOTE | 2019-07-08 03:59 | ED ---
Complex/Multi-Sys Presentation - HPI Summary HPI Summary: 34 year old F presenting to [facility] via EMS with a chief complaint of bilateral leg cramping beginning on the right that has since resolved, shortness of breath , wheezing, lightheadedness, a racing heart rate recently, fatigue, near syncope , and chest pain since 03:15 today. The patient rates the pain 0/10 in severity. Symptoms aggravated by nothing. Symptoms alleviated by nothing. Patient reports getting up to use the bathroom to have a bowel movement when the cramping began. Patient denies diarrhea, anxiety, or depression. She admits to an active history of smoking. Medication list reviewed. Allergy list reviewed. - History Of Current Complaint Time Seen by Provider: 07/08/19 03:47 Hx Obtained From: Patient Onset/Duration: Sudden Onset Severity Currently: None Aggravating Factor(s): None Alleviating Factor(s): None Associated Signs And Symptoms: Positive: SOB, Wheezing, Chest Pain, Other - Lightheadedness, racing heart rate, bilateral leg cramping, near syncope, fatigue. Negative: Diarrhea - Allergies/Home Medications Allergies/Adverse Reactions: Allergies Allergy/AdvReac Type Severity Reaction Status Date / Time NSAIDS (Non-Steroidal Allergy GI Upset Verified 07/08/19 04:05 Anti-Inflamma Home Medications: Home Medications LoraTADine TAB(NF) [Claritin 10 MG TAB(NF)] 10 mg PO DAILY 06/04/18 [History Confirmed 07/08/19] Gabapentin 300 mg PO TID 01/04/19 [History Confirmed 07/08/19] Pantoprazole Sodium 40 mg PO DAILY 07/08/19 [History Confirmed 07/08/19] PMH/Surg Hx/FS Hx/Imm Hx Endocrine/Hematology History: Reports: Hx Thyroid Disease - Hyperthyroid Denies: Hx Diabetes Cardiovascular History: Denies: Hx Angioplasty, Hx Hypertension, Hx Pacemaker/ICD GI History: Reports: Other GI Disorders - GASTRIC ULCER History: Denies: Hx Dialysis, Hx Renal Disease Sensory History: Reports: Hx Contacts or Glasses Opthamlomology History: Reports: Hx Contacts or Glasses Psychiatric History: Reports: Hx of Violent Episodes Against Others, Hx Substance Abuse - ETOH abuse Denies: Hx Eating Disorder, Hx Panic Disorder - Surgical History Surgery Procedure, Year, and Place: SURGERY FOR FIBROIDS - Immunization History Date of Tetanus Vaccine: 2010 Date of Influenza Vaccine: None Infectious Disease History: No Infectious Disease History: Denies: Traveled Outside the [place] in Last 30 Days - Family History Known Family History: Positive: Hypertension, Diabetes, Other - carpal tunnel Negative: Blood Disorder - clots - Social History Alcohol Use: Occasionally Alcohol Amount: approx 2 beers when she can get it Hx Substance Use: Yes Substance Use Type: Reports: Marijuana Substance Use Comment - Amount & Last Used: occasionally Hx Tobacco Use: Yes Smoking Status (MU): Light Every Day Tobacco Smoker Review of Systems Positive: Fatigue Positive: Chest Pain, Other - Racing heart rate Positive: Shortness Of Breath Negative: Diarrhea Positive: Other - Leg cramping Neurological/Mental Status: Other - Near syncope; lightheadedness Negative: Anxious, Depressed All Other Systems Reviewed And Are Negative: Yes Physical Exam - Summary Physical Exam Summary: Constitutional: Well-developed, Well-nourished, Alert. (-) Distressed Skin: Warm, Dry HENT: Normocephalic; Atraumatic Eyes: Conjunctiva normal Neck: Musculoskeletal ROM normal neck. (-) JVD, (-) Stridor, (-) Tracheal deviation Cardio: Rhythm regular, rate normal, Heart sounds normal; Intact distal pulses; The pedal pulses are 2+ and symmetric. Radial pulses are 2+ and symmetric. (-) Murmur Pulmonary/Chest wall: Effort normal. (-) Respiratory distress, (-) Wheezes, (-) Rales Abd: Soft, (-) tenderness, (-) Distension, (-) Guarding, (-) Rebound Musculoskeletal: (-) Edema Lymph: (-) Cervical adenopathy Neuro: Alert, Oriented x3 Psych: Mood and affect Normal Triage Information Reviewed: Yes Vital Signs On Initial Exam: Initial Vitals Temp Pulse Resp BP Pulse Ox 96.9 F 77 20 142/84 100 07/08/19 03:50 07/08/19 03:50 07/08/19 03:50 07/08/19 03:50 07/08/19 03:50 Vital Signs Reviewed: Yes Procedures - Sedation Patient Received Moderate/Deep Sedation with Procedure: No Diagnostics - Vital Signs Vital Signs Temp Pulse Resp BP Pulse Ox 07/08/19 03:50 96.9 F 77 20 142/84 100 - Laboratory Result Diagrams: 07/08/19 04:48 07/08/19 04:48 Lab Statement: Any lab studies that have been ordered have been reviewed, and results considered in the medical decision making process. - Radiology Chest x-ray Radiology Interpretation Completed By: ED Physician Summary of Radiographic Findings: Poor inspiratory film, no acute disease. ED physician has reviewed and interpreted this report. - EKG 04:23 Cardiac Rate: NL - 76 BPM EKG Rhythm: Sinus Rhythm Summary of EKG Findings: Normal sinus rhythm at 76 bpm, normal GA, normal QRS, normal QTc, STs elevated in V2 and V3, normal T-waves, nonspecific EKG. ED physician has reviewed and interpreted this EKG. Complex Multi-Symp Course/Dx Course Of Treatment: 34 year old F presenting to [facility] via EMS with a chief complaint of bilateral leg cramping beginning on the left that has since resolved, shortness of breath, wheezing, lightheadedness, a racing heart rate recently, fatigue, near syncope, and chest pain since 03:15 today. Physical exam findings: normal physical exam. An EKG reveals normal sinus rhythm at 76 bpm, normal GA, normal QRS, normal QTc, STs elevated in V2 and V3, normal T- waves, nonspecific EKG. CXR reveals, per ED physician, poor inspiratory film, no acute disease. Laboratory results with no significant abnormalities except for an Hgb of 11.9, glucose of 108, AST of 54, and ALT of 86. In the ED course, the patient was given Orphenadrine Citrate. Patient was signed out to Dr. Chavez at 0700 07/08/2019 pending a second troponin and disposition. - Diagnoses Provider Diagnoses: Anxiety, Muscle cramps, Chest pain, unspecified Discharge ED - Sign-Out/Discharge Documenting (check all that apply): Sign-Out Patient Signing out patient TO: Luis A Chavez - Pending a second troponin and disposition. - Discharge Plan Referrals: Holger Johnson DO [Primary Care Provider] - - Attestation Statements Document Initiated by Scribe: Yes Documenting Scribe: Monserrat Harper Provider For Whom Scribe is Documenting (Include Credential): Chantell Barboza MD Scribe Attestation: Mary Finney Natalie George, scribed for Chantell Schafer MD on 07/08/19 at 0705. Scribe Documentation Reviewed: Yes Provider Attestation: The documentation as recorded by the scribe, Monserrat Harper accurately reflects the service I personally performed and the decisions made by me, Chantell Schafer MD Status of Scribe Document: Viewed
[2019-07-08 05:14] LABS: ABS Basophils 0.1 10^3/ul (0-0.2); ABS Eosinophils 0.2 10^3/ul (0-0.6); ABS Lymphocytes 2.1 10^3/ul (1.0-4.8); ABS Monocytes 0.7 10^3/ul (0-0.8); ABS Neutrophils 5.8 10^3/ul (1.5-7.7); Eosinophil % 2.2 %; Hematocrit 36 % (35-47); Hemoglobin 11.9 g/dL (12.0-16.0); Lymphocyte % 24.1 %; Mean Corpuscular HGB Conc 33 g/dL (31-36); Mean Corpuscular Hemoglobin 29 pg (27-31); Mean Corpuscular Volume 87 fL (80-97); Mean Platelet Volume 9.1 fL (7.4-10.4); Nucleated Red Blood Cells % 0.2; Platelet Count 274 10^3/uL (150-450); Red Blood Count 4.14 10^6 /uL (3.70-4.87); Red Cell Distribution Width 14 % (10-15); White Blood Count 8.9 10^3/uL (3.5-10.8)
[2019-07-08 05:30] LABS: ALT 86 U/L (7-52); AST 54 U/L (13-39); Albumin 3.9 g/dL (3.2-5.2); Albumin/Globulin Ratio 1.3 (1-3); Alkaline Phosphatase 68 U/L (34-104); Anion Gap 5 mmol/L (2-11); BUN/Creatinine Ratio 17.9 (8-20); Blood Urea Nitrogen 14 mg/dL (6-24); CO2 Carbon Dioxide 25 mmol/L (22-32); Calcium 9.2 mg/dL (8.6-10.3); Chloride 106 mmol/L (101-111); EGFR African American 103.6 (>60); EGFR Non-African American 85.6 (>60); Globulin 2.9 g/dL (2-4); Glucose 108 mg/dL (70-100); Magnesium 1.9 mg/dL (1.9-2.7); Potassium 4.1 mmol/L (3.5-5.0); Sodium 136 mmol/L (135-145); Total Protein 6.8 g/dL (6.4-8.9)
[2019-07-08 05:36] LABS: HCG Pregnancy < 0.60 mIU/mL
[2019-07-08] MEDS ORDERED: Orphenadrine Citrate IV* 30 MG/ML 2 ML VIAL IV ONE (05:40)
[2019-07-08] MEDS ORDERED: Clindamycin 600 MG/D5W BAG(*) 600 MG/50 ML BAG IV ONE (07:03)
--- NOTE | 2019-07-08 07:10 | ED ---
Progress - Progress Note Progress Note: Patient is a sign out at 07:00 on 07/08/[address] Schafer to Dr. Luis A Chavez at shift change, pending laboratory results, further workup , and disposition. Patient will be discharged with a diagnosis of chest pain. Follow up with PCP in 2-3 days. Course/Dx - Diagnoses Provider Diagnoses: Anxiety, Muscle cramps, Chest pain, unspecified Discharge ED - Sign-Out/Discharge Documenting (check all that apply): Patient Departure - Discharge, Receiving Sign-Out Receiving patient FROM: Chantell Schafer - Patient is a sign out at 07: 00 on 07/08/[address] Schafer to Dr. Luis A Chavez at shift change, pending laboratory results, further workup, and disposition. - Discharge Plan Condition: Stable Disposition: HOME Patient Education Materials: Chest Pain (ED) Referrals: Holger Johnson DO [Primary Care Provider] - Additional Instructions: You were seen in the emergency department for chest pain. Your EKG (heart tracing), labs and chest x-ray did not show any cause for pain. Important that you follow up with you primary care doctor in the next 1-2 days. Please return to the emergency department for continued chest pain, trouble breathing, passing out, or if you're concerned. - Attestation Statements Document Initiated by Scribe: Yes Documenting Scribe: Kayla Up Provider For Whom Scribe is Documenting (Include Credential): Luis A Chavez MD Scribe Attestation: I, Kayla Up, scribed for Luis A Chavez MD on 07/08/19 at 0750. Status of Scribe Document: Ready
[2019-07-08 07:58] VITALS: BP 140/83
== END 2019-07-08 07:58 | disposition home or self-care (01) ==
LOC: ED 03:44
DX: R25.2 Cramp and spasm (principal); R07.9 Chest pain, unspecified; F41.9 Anxiety disorder, unspecified; R06.02 Shortness of breath; R42 Dizziness and giddiness; R53.83 Other fatigue; Z88.6 Allergy status to analgesic agent; F17.200 Nicotine dependence, unspecified, uncomplicated
CPT/HCPCS: 36415; 71045; 80053; 83605; 83735; 84484; 84702; 85025; 93005; 96374; 99283; J2360

== ENCOUNTER 2019-12-29 01:18 | Observation (INO) ==
[2019-12-29] MEDS ORDERED: Morphine 10 MG/ML VIAL (1 ml) IV ONE (01:21)
[2019-12-29] MEDS ORDERED: diPHENhydraMINE IV 50 MG/ML 1 ml VIAL (BENADRYL) SLOW PUSH ONE (04:02)
[2019-12-29] MEDS ORDERED: Senna TAB 8.6 mg TAB PO PRN (08:50)
[2019-12-29] MEDS ORDERED: Morphine 2 MG/ML SYRINGE IV PRN (08:50)
[2019-12-29] MEDS ORDERED: Ondansetron 4 mg VIAL 2 MG/ML 2 ml VIAL IV PRN (08:50)
[2019-12-29] MEDS ORDERED: NS 0.9% 1000 ml BAG 1,000 ML IV SCH (09:00)
[2019-12-29] MEDS ORDERED: Thiamine 100 MG/ML 2 ml VIAL (200 mg) IM ONE (09:29)
[2019-12-29] MEDS ORDERED: Nicotine GUM 2MG FRUIT FLAVOR PO PRN (10:17)
[2019-12-29 10:21] LABS: ABS Basophils 0.1 10^3/ul (0-0.2); ABS Eosinophils 0.1 10^3/ul (0-0.6); ABS Lymphocytes 2.3 10^3/ul (1.0-4.8); ABS Monocytes 0.8 10^3/ul (0-0.8); ABS Neutrophils 7.5 10^3/ul (1.5-7.7); Eosinophil % 1.3 %; Hematocrit 35 % (35-47); Hemoglobin 11.6 g/dL (12.0-16.0); Mean Corpuscular HGB Conc 33 g/dL (31-36); Mean Corpuscular Hemoglobin 29 pg (27-31); Mean Corpuscular Volume 88 fL (80-97); Mean Platelet Volume 8.2 fL (7.4-10.4); Nucleated Red Blood Cells % 0.1; Platelet Count 272 10^3/uL (150-450); Red Blood Count 4.04 10^6 /uL (3.70-4.87); Red Cell Distribution Width 15 % (10-15); White Blood Count 10.7 10^3/uL (3.5-10.8)
[2019-12-29 10:38] LABS: Albumin 3.7 g/dL (3.2-5.2); BUN/Creatinine Ratio 21.9 (8-20); Calcium 9.1 mg/dL (8.6-10.3); EGFR African American 81.5 (>60); EGFR Non-African American 67.4 (>60); Potassium 3.7 mmol/L (3.5-5.0); Total Protein 6.7 g/dL (6.4-8.9)
[2019-12-29 10:39] LABS: Albumin/Globulin Ratio 1.2 (1-3); Total Bilirubin 0.2 mg/dL (0.2-1.0)
[2019-12-29] MEDS: Morphine 2 MG/ML SYRINGE IV PRN (12:51)
[2019-12-29] MEDS ORDERED: diPHENhydraMINE 25 mg TAB PO PRN (13:02)
[2019-12-29] MEDS: diPHENhydraMINE IV 50 MG/ML 1 ml VIAL (BENADRYL) IV PRN ×2 (13:17→19:45)
[2019-12-29] MEDS ORDERED: Heparin 5000 UNITS/ML 1 mL VIAL SUBCUT SCH (14:00)
[2019-12-29] MEDS ORDERED: Diazepam INJ CARPUJECT 5 MG/ML IV ONE ×2 (14:31→14:51)
[2019-12-29 17:12] LABS: Urine Appearance Cloudy; Urine Bilirubin Negative (Negative); Urine Blood Negative (Negative); Urine Color Yellow; Urine Glucose Negative (Negative); Urine Ketones Negative (Negative); Urine Nitrite Negative (Negative); Urine Protein Negative (Negative); Urine Specific Gravity 1.027 (1.010-1.030); Urine Urobilinogen Negative (Negative)
[2019-12-29] MEDS: Heparin 5000 UNITS/ML 1 mL VIAL SUBCUT SCH (21:31)
[2019-12-30] MEDS: Morphine 2 MG/ML SYRINGE IV PRN ×3 (05:00→22:50)
[2019-12-30] MEDS: Heparin 5000 UNITS/ML 1 mL VIAL SUBCUT SCH ×3 (05:31→21:11)
[2019-12-30 05:33] LABS: Calcium 8.9 mg/dL (8.6-10.3); Potassium 4.1 mmol/L (3.5-5.0)
[2019-12-30 05:38] LABS: BUN/Creatinine Ratio 21.3 (8-20); EGFR African American 100.6 (>60); EGFR Non-African American 83.1 (>60)
[2019-12-30] MEDS: diPHENhydraMINE IV 50 MG/ML 1 ml VIAL (BENADRYL) IV PRN (08:46)
[2019-12-30] MEDS: Vitamin THERAPEUTIC TAB PO SCH (10:14)
[2019-12-30] MEDS ORDERED: Diazepam INJ CARPUJECT 5 MG/ML IV ONE (10:32)
[2019-12-31] MEDS: Heparin 5000 UNITS/ML 1 mL VIAL SUBCUT SCH ×2 (06:11→13:33)
[2019-12-31] MEDS: Vitamin THERAPEUTIC TAB PO SCH (07:48)
[2019-12-31 12:06] VITALS: BP 138/73
== END 2019-12-31 15:50 | disposition home or self-care (01) ==
LOC: ED 01:18 → SSU 01:18
PROVIDERS: ADMIT Internal Medicine; ATTEND Internal Medicine

== ENCOUNTER 2024-04-18 04:16 | Observation (INO) ==
[2024-04-18] MEDS: Morphine 4 MG/ML VIAL (1 ml) IV ONE (05:10)
[2024-04-18] MEDS: Lactated Ringers 1000 ml BAG 1,000 ML IV ONE (05:13)
[2024-04-18 05:45] LABS: ABS Basophils 0.1 10^3/uL (0.0-0.1); ABS Eosinophils 0.1 10^3/uL (0.0-0.5); ABS Lymphocytes 1.9 10^3/uL (1.0-4.8); ABS Monocytes 0.4 10^3/uL (0.0-0.9); ABS Neutrophils 5.7 10^3/uL (1.5-7.6); ABS Nucleated RBC 0.01 10^3/ul; Eosinophil % 1.8 %; Hemoglobin 9.8 g/dL (11.5-14.3); Lymphocyte % 23.5 %; Mean Corpuscular Hemoglobin 29.5 pg (27-33); Mean Corpuscular Hgb Conc 33.6 g/dL (31-36); Mean Corpuscular Volume 87.9 fL (80-97); Mean Platelet Volume 8.7 fL (7.5-11.2); Nucleated Red Blood Cells % 0.1 %/100WBC (0.0-0.8); Platelet Count 204 10^3/uL (150-450); White Blood Count 8.3 10^3/uL (3.8-11.8)
[2024-04-18 06:23] LABS: ALT 45 U/L (7-52); AST 35 U/L (13-39); Albumin 2.9 g/dL (3.2-5.2); Albumin/Globulin Ratio 1.4 (1-3); Alkaline Phosphatase 94 U/L (35-149); Anion Gap 12 mmol/L (2-16); Blood Urea Nitrogen 10 mg/dL (6-24); CO2 Carbon Dioxide 18 mmol/L (22-32); Chloride 104 mmol/L (101-111); Creatinine, Serum 0.49 mg/dL (0.51-0.95); Globulin 2.1 g/dL (2-4); Glucose 108 mg/dL (70-100); Potassium 3.7 mmol/L (3.5-5.0); Sodium 134 mmol/L (135-145); Total Bilirubin 0.3 mg/dL (0.2-1.0); eGFR CKD-EPI 124.4 (>60)
[2024-04-18 06:28] LABS: HCG Pregnancy < 0.60 mIU/mL
[2024-04-18 06:40] LABS: HIV 4th Generation Nonreactive (Nonreactive)
[2024-04-18] MEDS: Iohexol 350 (CONTRAST) 500 ML MDV IV ONE (07:31)
[2024-04-18] MEDS: Pantoprazole VIAL 40 MG VIAL IV ONE (07:38)
[2024-04-18] MEDS: Acetaminophen IV 1 GM/100ML 1,000 MG/100 ML BAG IV ONE (08:21)
[2024-04-18 08:34] LABS: Urine Appearance Clear; Urine Bacteria Absent /HPF (Absent); Urine Bilirubin Negative (Negative); Urine Blood Negative (Negative); Urine Color Yellow; Urine Glucose Negative (Negative); Urine Ketones Negative (Negative); Urine Nitrite Negative (Negative); Urine Protein Trace (Negative); Urine Red Blood Cell Trace(0-2/hpf) /HPF (0-Trace); Urine Specific Gravity >1.050 (1.002-1.030); Urine Squamous Epithelial Cell Present /HPF (Absent); Urine Urobilinogen Negative (Negative); Urine White Blood Cell Trace(0-5/hpf) /HPF (0-Trace)
[2024-04-18 10:58] LABS: ABS Basophils 0.1 10^3/uL (0.0-0.1); ABS Eosinophils 0.2 10^3/uL (0.0-0.5); ABS Lymphocytes 2.4 10^3/uL (1.0-4.8); ABS Monocytes 0.6 10^3/uL (0.0-0.9); ABS Neutrophils 6.1 10^3/uL (1.5-7.6); Hemoglobin 11.6 g/dL (11.5-14.3); Lymphocyte % 25.8 %; Mean Corpuscular Hemoglobin 28.9 pg (27-33); Mean Corpuscular Volume 87.4 fL (80-97); Mean Platelet Volume 8.4 fL (7.5-11.2); Platelet Count 256 10^3/uL (150-450); Red Cell Distribution Width 14.2 % (12-17); White Blood Count 9.4 10^3/uL (3.8-11.8)
[2024-04-18 11:02] LABS: INR 1.06 (0.85-1.14)
[2024-04-18] MEDS ORDERED: Acetaminophen IV 1 GM/100ML 1,000 MG/100 ML BAG IV PRN (11:52)
[2024-04-18] MEDS ORDERED: Dextrose 50% Syringe 50 ml 25 GM/50 ML SYRINGE IV PUSH PRN (12:01)
[2024-04-18] MEDS: Morphine 2 MG/ML SYRINGE IV PRN (14:07)
[2024-04-18] MEDS ORDERED: Lidocaine 2% PF 5 ML VIAL ONE (15:51)
[2024-04-18] MEDS ORDERED: Pantoprazole VIAL 40 MG VIAL IV SCH (21:00)
[2024-04-19 05:34] VITALS: BP 164/79
[2024-04-19 07:05] LABS: ABS Eosinophils 0.2 10^3/uL (0.0-0.5); ABS Lymphocytes 2.4 10^3/uL (1.0-4.8); ABS Monocytes 0.5 10^3/uL (0.0-0.9); ABS Neutrophils 5.5 10^3/uL (1.5-7.6); Hemoglobin 11.3 g/dL (11.5-14.3); Lymphocyte % 27.5 %; Mean Corpuscular Hemoglobin 29.1 pg (27-33); Mean Corpuscular Hgb Conc 33.4 g/dL (31-36); Mean Corpuscular Volume 87.3 fL (80-97); Mean Platelet Volume 8.8 fL (7.5-11.2); Platelet Count 241 10^3/uL (150-450); Red Cell Distribution Width 14.3 % (12-17); White Blood Count 8.6 10^3/uL (3.8-11.8)
[2024-04-19 07:14] LABS: Calcium 8.6 mg/dL (8.6-10.3); Creatinine, Serum 0.81 mg/dL (0.51-0.95); Potassium 3.8 mmol/L (3.5-5.0); eGFR CKD-EPI 95.8 (>60)
[2024-04-19] MEDS: DULoxetine DR 60 mg CAP PO SCH (08:37)
== END 2024-04-19 10:05 | disposition home or self-care (01) ==
LOC: EDHOLD 04:16 → ED 04:16 → SUATTDRO 11:23 → MEDTELE 12:04
PROVIDERS: ADMIT Hospitalist; ATTEND Student in an Organized Health Care Education/Training Program
PROC: O.GIEGD (2024-04-18 15:50)